=== PATIENT | female | born 1995 | race American Indian/Alaskan Native ===

== ENCOUNTER 2017-01-13 20:22 | Emergency (ER) | payer OTHER, MEDICAID ==
[2017-01-13 20:30] VITALS: BMI 23.6
--- NOTE | 2017-01-13 20:34 | ED PDOC ---
Arrival/HPI - General Time Seen by Provider: 01/13/17 20:24 Historian: Patient - History of Present Illness Narrative History of Present Illness (Text): 01/13/17 20:31 21yo female who present with complaint of left sided lower back pain that radiates to the left pelvic area. States pain started one hour [employer]. She denies nausea, vomiting, dysuria, urinary frequency, fever, melena, hematuria. Past Medical History - Provider Review Nursing Documentation Reviewed: Yes - Past History Past History: No Previous - Infectious Disease Hx of Infectious Diseases: None - Tetanus Immunization Tetanus Immunization: Unknown - Past Medical History Past Medical History: Non-Contributing - Cardiac Hx Cardiac Disorders: No - Pulmonary Hx Bronchitis: Yes - Neurological Hx Neurological Disorder: Yes Hx Migraine: Yes - HEENT Hx HEENT Disorder: No - Renal Hx Renal Disorder: No - Endocrine/Metabolic Hx Endocrine Disorders: No - Hematological/Oncological Hx Blood Disorders: No - Integumentary Hx Dermatological Disorder: No - Musculoskeletal/Rheumatological Hx Musculoskeletal Disorders: No - Gastrointestinal Hx Gastrointestinal Disorders: No - Genitourinary/Gynecological Hx Genitourinary Disorders: No - Psychiatric Hx Psychophysiologic Disorder: No Hx Anxiety: No Hx Bipolar Disorder: No Hx Depression: No Hx Emotional Abuse: No Hx Hallucinations: No Hx Panic Disorder: No Hx Post Traumatic Stress Disorder: No Hx Psychosis: No Hx Physical Abuse: No Hx Schizophrenia: No Hx Sexual Abuse: No Hx Substance Use: No - Past Surgical History Past Surgical History: No Previous - Anesthesia Hx Anesthesia: No Hx Anesthesia Reactions: No Hx Malignant Hyperthermia: No - Suicidal Assessment Feels Threatened In Home Enviroment: No Family/Social History - Physician Review Nursing Documentation Reviewed: Yes Family/Social History: Unknown Family HX Smoking Status: Never Smoked Hx Alcohol Use: Yes Hx Substance Use: No Hx Substance Use Treatment: No Allergies/Home Meds Allergies/Adverse Reactions: Allergies cinnamon Allergy (Verified 03/15/16 10:54) URTICARIA chocolate Allergy (Uncoded 03/15/16 10:54) PAIN Review of Systems - Physician Review All systems were reviewed & negative as marked: Yes - Review of Systems Constitutional: Normal Eyes: Normal ENT: Normal Respiratory: Normal Cardiovascular: Normal Gastrointestinal: Abdominal Pain. absent: Constipation, Diarrhea, Nausea, Vomiting Genitourinary Female: Normal Musculoskeletal: Back Pain Skin: Normal Neurological: Normal Endocrine: Normal Hemo/Lymphatic: Normal Psychiatric: Normal Physical Exam Vital Signs Reviewed: Yes Vital Signs Temp Pulse Resp BP Pulse Ox 01/13/17 22:44 62 16 112/76 100 01/13/17 20:32 97.8 F 70 18 111/76 100 Temperature: Afebrile Blood Pressure: Normal Pulse: Regular Respiratory Rate: Normal Appearance: Positive for: Well-Appearing, Non-Toxic, Comfortable Pain Distress: None Mental Status: Positive for: Alert and Oriented X 3 - Systems Exam Head: Present: Atraumatic, Normocephalic Pupils: Present: PERRL Extroacular Muscles: Present: EOMI Conjunctiva: Present: Normal Mouth: Present: Moist Mucous Membranes Neck: Present: Normal Range of Motion Respiratory/Chest: Present: Clear to Auscultation, Good Air Exchange. No: Respiratory Distress, Accessory Muscle Use Cardiovascular: Present: Regular Rate and Rhythm, Normal S1, S2. No: Murmurs Abdomen: Present: Tenderness (Suprapubic tenderness), Normal Bowel Sounds. No: Distention, Peritoneal Signs, Rebound, Guarding, McBurney's Point Tender, Rovsing's Sign Present Back: Present: Normal Inspection Upper Extremity: Present: Normal Inspection. No: Cyanosis, Edema Lower Extremity: Present: Normal Inspection. No: Edema Neurological: Present: GCS=15, CN II-XII Intact, Speech Normal Skin: Present: Warm, Dry, Normal Color. No: Rashes Psychiatric: Present: Alert, Oriented x 3, Normal Insight, Normal Concentration Medical Decision Making ED Course and Treatment: 01/13/17 23:55 Pt's pain improved in ED with medication. Trace leukocyte was noted in UA Abdominal CT was ordered to r/o renal colic. Abdominal Ct pelvic ascities. Mesenteric lymph node was noted. Secondary to pt's complain and the objective finding, pt was placed on Macrobid for UTI. All result was DW the pt. she was referred to her PMD. TRT ED for any new or worsening symptoms. - Lab Interpretations Lab Results: Lab Results 01/13/17 20:58: Urine Color Yellow, Urine Appearance Sl cloudy, Urine pH 6.0, Ur Specific [place] 1.015, Urine Protein Negative, Urine Glucose (UA) Negative, Urine Ketones Negative, Urine Blood Trace-lysed H, Urine Nitrate Negative, Urine Bilirubin Negative, Urine Urobilinogen 0.2, Ur Leukocyte Esterase Trace H , Urine RBC 0 - 2, Urine WBC 0 - 2, Urine Bacteria Trace - RAD Interpretation Radiology Orders: 01/13/17 21:44 ABD & PELVIS W/O PO OR IV CONT [CT] Stat - Medication Orders Current Medication Orders: Discontinued Medications Ketorolac Tromethamine (Toradol) 60 mg IM STAT STA Stop: 01/13/17 20:57 Last Admin: 01/13/17 21:06 Dose: 60 mg Re-Assess: NICO Pain Assessment Document 01/13/17 22:06 HI (Rec: 01/13/17 22:22 HI [facility]-[id number]) Pain Reassessment Is this a pain reassessment? Yes Sleep Is patient sleeping during reassessment? No Presence of Pain Presence of Pain Yes Pain Scale Used Pain Scale Used Numeric Location Left, Right or Bilateral Left Upper or Lower Lower Pain Location Body Site Back Description Intensity of Pain at present 6 Acceptable Level of Pain 4 Nitrofurantoin Macrocrystals (Macrobid) 100 mg PO ONCE STA Stop: 01/13/17 22:32 Last Admin: 01/13/17 22:40 Dose: 100 mg Disposition/Present on Arrival - Present on Arrival Any Indicators Present on Arrival: No History of DVT/PE: No History of Uncontrolled Diabetes: No Urinary Catheter: No History Surgical Site Infection Following: None - Disposition Have Diagnosis and Disposition been Completed?: Yes Diagnosis: UTI (urinary tract infection) Disposition: HOME/ ROUTINE Disposition Time: 22:35 Patient Plan: Discharge Condition: STABLE Discharge Instructions (ExitCare): Urinary Tract Infection in Women (ED) Additional Instructions: Follow up with your Doctor Return to ED for any new or worsening symptoms Prescriptions: Ibuprofen [Motrin Tab] 600 mg PO Q6 #20 tab Nitrofurantoin Macrocrystals [Macrobid] 100 mg PO BID #14 cap Referrals: [facility] at [facility] [Outside] - Follow up with primary
[2017-01-13 20:42] VITALS: TEMP 97.8; O2SAT 100
[2017-01-13 21:39] LABS: URINE BILIRUBIN NEGATIVE (NEGATIVE); URINE BLOOD TRACE-LYSED (NEGATIVE); URINE GLUCOSE (UA) NEGATIVE (NEGATIVE); URINE KETONE NEGATIVE (NEGATIVE); URINE LEUKOCYTE ESTERASE TRACE Leu/uL (NEGATIVE); URINE PROTEIN NEGATIVE mg/dL (<30 mg/dL); URINE UROBILINOGEN 0.2 E.U./dL (<1 E.U./dL)
[2017-01-13 21:42] LABS: URINE APPEARANCE SL CLOUDY (CLEAR); URINE COLOR YELLOW (YELLOW)
[2017-01-13 21:44] LABS: URINE BACTERIA TRACE (NEG); URINE RBC 0 - 2 /hpf (0-2); URINE WBC 0 - 2 /hpf (0-6)
--- NOTE | 2017-01-13 22:26 | CT ---
EXAM: CT Abdomen and Pelvis Without Intravenous Contrast CLINICAL HISTORY: 21 years old, female; Pain; Other: Back pain; Additional info: Abdominal pain TECHNIQUE: Axial computed tomography images of the abdomen and pelvis without intravenous contrast. This CT exam was performed using one or more of the following dose reduction techniques: automated exposure control, adjustment of the mA and/or kV according to patient size, and/or use of iterative reconstruction technique. Coronal and sagittal reformatted images were created and reviewed. COMPARISON: CT - ABD PELVIS PO IV CONTRAST 10/11/2015 7:56:23 PM FINDINGS: Limitations: Lack of intravenous contrast. Lower thorax: Subcentimeter LEFT lower lobe nodule, stable. ABDOMEN: Liver: Unremarkable. Gallbladder and bile ducts: No calcified stones. No ductal dilation. Pancreas: Unremarkable. No ductal dilation. Spleen: No splenomegaly. Adrenals: No mass. Kidneys and ureters: No renal calculi. No hydronephrosis. Stomach and bowel: Segmental areas of underdistention of colon. No definite mural thickening. No obstruction. Appendix: No findings to suggest acute appendicitis. PELVIS: Bladder: Unremarkable. No stones. Reproductive: Unremarkable as visualized. ABDOMEN and PELVIS: Intraperitoneal space: Small free fluid within pelvis. No free air. Bones/joints: No acute fracture. Soft tissues: Unremarkable. Vasculature: Unremarkable. No abdominal aortic aneurysm. Lymph nodes: Few subcentimeter short axis mesenteric lymph nodes, nonspecific. IMPRESSION: 1. Small pelvic ascites. 2. Incidental/non-acute findings are described above.
[2017-01-13 22:47] VITALS: BP 112/76; PULSE 62; RESP 16
== END 2017-01-13 22:44 | disposition home or self-care (01) ==
LOC: ED 20:22
DX: N39.0 Urinary tract infection, site not specified (principal)
CPT/HCPCS: 74176; 81001; 87086; 96372; 99283; J1885

== ENCOUNTER 2017-06-06 19:40 | Emergency (ER) | payer MEDICAID, OTHER ==
[2017-06-06 19:51] VITALS: RESP 18; TEMP 98.7; O2SAT 98; BMI 24.3
[2017-06-06] MEDS ORDERED: Sodium Chloride 0.9% 1,000 ML IV STA (20:21)
--- NOTE | 2017-06-06 20:32 | ED PDOC ---
Arrival/HPI - History of Present Illness Time/Duration: < week Symptom Onset: Sudden Symptom Course: Unchanged Activities at Onset: Rest Context: Home <SHADIA TRIANA - Last Filed: 06/06/17 21:32> <Gisselle Gutiérrez - Last Filed: 06/06/17 21:59> - General Chief Complaint: GI Problem Time Seen by Provider: 06/06/17 19:51 - History of Present Illness Narrative History of Present Illness (Text): 06/06/17 20:21 Ms. Wade is a 21 year old female with a past medical history significant for ovarian cysts and chronic migraines [place] [facility] [place] with 36 hours of intractable nausea and vomiting with associated diarrhea. Patient reports yesterday morning she awoke having body aches, a sore throat, nausea, and began vomiting shortly after. She reports approximately 16 episodes of non-bloody non- bilious vomiting with approximately 9 episodes of non-bloody diarrhea. She has been unable to tolerate PO intake since yesterday as well. She reports that she had a fever of 101 via an oral thermometer earlier this AM. She reports having two family members at home that have mild viral illness symptoms within the past week without any GI symptoms. She also reports having baked ziti at a local restaurant on Sunday evening but she was accompanied by a guest whom is not currently experiencing any symptoms. She endorses ear pain, rhinorrhea, sore throat, non-productive cough, N/V, diarrhea, fever , chills and vertigo. She denies chest pain, palpitations, SOB, hematemesis, hematochezia, or burning with urination. (SHADIA TRIANA) Past Medical History - Provider Review Nursing Documentation Reviewed: Yes - Travel History Have you recently traveled outside [place] w/in the past 3 mons?: No - Past History Past History: No Previous - Infectious Disease Hx of Infectious Diseases: None - Tetanus Immunization Tetanus Immunization: Unknown - Past Medical History Past Medical History: Non-Contributing - Cardiac Hx Cardiac Disorders: No - Pulmonary Hx Respiratory Disorders: Yes Hx Bronchitis: Yes - Neurological Hx Neurological Disorder: Yes Hx Migraine: Yes - HEENT Hx HEENT Disorder: No - Renal Hx Renal Disorder: No - Endocrine/Metabolic Hx Endocrine Disorders: No - Hematological/Oncological Hx Blood Disorders: No - Integumentary Hx Dermatological Disorder: No - Musculoskeletal/Rheumatological Hx Musculoskeletal Disorders: No - Gastrointestinal Hx Gastrointestinal Disorders: No - Genitourinary/Gynecological Hx Genitourinary Disorders: No - Psychiatric Hx Psychophysiologic Disorder: No Hx Anxiety: No Hx Bipolar Disorder: No Hx Depression: No Hx Emotional Abuse: No Hx Hallucinations: No Hx Panic Disorder: No Hx Post Traumatic Stress Disorder: No Hx Psychosis: No Hx Physical Abuse: No Hx Schizophrenia: No Hx Sexual Abuse: No Hx Substance Use: No - Past Surgical History Past Surgical History: No Previous - Anesthesia Hx Anesthesia: No Hx Anesthesia Reactions: No Hx Malignant Hyperthermia: No - Suicidal Assessment Feels Threatened In Home Enviroment: No <SHADIA TRIANA - Last Filed: 06/06/17 21:32> Family/Social History - Physician Review Nursing Documentation Reviewed: Yes Family/Social History: Unknown Family HX Smoking Status: Never Smoked Hx Alcohol Use: Yes Hx Substance Use: No Hx Substance Use Treatment: No <SHADIA TRIANA - Last Filed: 06/06/17 21:32> Allergies/Home Meds <SHADIA TRIANA - Last Filed: 06/06/17 21:32> <Gisselle Gutiérrez - Last Filed: 06/06/17 21:59> Allergies/Adverse Reactions: Allergies cinnamon Allergy (Verified 06/06/17 19:51) URTICARIA chocolate Allergy (Uncoded 06/06/17 19:51) PAIN Review of Systems - Physician Review All systems were reviewed & negative as marked: Yes - Review of Systems Constitutional: Fevers (oral temp of 101 9/27 AM). absent: Normal, Weight Change, Night Sweats Eyes: Normal. absent: Vision Changes ENT: Sore Throat, Rhinorrhea. absent: Normal, Sinus Congestion Respiratory: Cough (non produc). absent: Normal, SOB, Wheezing Cardiovascular: Normal. absent: Chest Pain, Palpitations Gastrointestinal: Abdominal Pain, Diarrhea, Nausea, Vomiting, Food Intolerance. absent: Normal, Constipation, Hematochezia, Hematemesis Genitourinary Female: Normal. absent: Dysuria Musculoskeletal: Other (body aches). absent: Normal Skin: Normal. absent: Rash Neurological: Headache, Dizziness. absent: Normal <SHADIA TRIANA - Last Filed: 06/06/17 21:32> Physical Exam Vital Signs Reviewed: Yes Temperature: Afebrile Blood Pressure: Normal Pulse: Regular Respiratory Rate: Normal Appearance: Positive for: Well-Appearing, Non-Toxic Pain Distress: None Mental Status: Positive for: Alert and Oriented X 3 - Systems Exam Head: Present: Atraumatic, Normocephalic Pupils: Present: PERRL Extroacular Muscles: Present: EOMI Conjunctiva: Present: Normal Ears: Present: Normal, NORMAL TM, Normal Canal. No: Erythema, TM Bulging, TM Perf Mouth: Present: Moist Mucous Membranes, Normal Lips, Normal Tounge, Normal Teeth Pharnyx: Present: Normal. No: ERYTHEMA, EXUDATE, TONSILS ENLARGED, Peritonsilar Swelling Nose (Internal): Present: No Active Bleeding, Boggy, Rhinorrhea. No: Normal Inspection, Purulent Mucous, Epistaxis Neck: Present: Normal Range of Motion, Trachea Midline. No: Meningeal Signs, JVD Respiratory/Chest: Present: Clear to Auscultation, Good Air Exchange. No: Respiratory Distress, Accessory Muscle Use, Wheezes, Rales, Rhonchi, Tachypneic Cardiovascular: Present: Regular Rate and Rhythm, Normal S1, S2, Peripheal Pulses Present. No: Murmurs, Irregular Rhythm, Tachycardic, Bradycardic Abdomen: Present: Tenderness (mild in RLQ), Normal Bowel Sounds. No: Distention , Peritoneal Signs, Rebound, Guarding Back: No: CVA Tenderness, Midline Tenderness, Paraspinal Tenderness Upper Extremity: Present: Normal Inspection, NORMAL PULSES, Capillary Refill < 2s. No: Cyanosis, Edema Lower Extremity: Present: Normal Inspection, NORMAL PULSES, Capillary Refill < 2 s. No: Edema, CALF TENDERNESS Neurological: Present: GCS=15, CN II-XII Intact, Speech Normal Skin: Present: Warm, Dry, Normal Color. No: Rashes Psychiatric: Present: Alert, Oriented x 3, Normal Insight, Normal Concentration <SHADIA TRIANA - Last Filed: 06/06/17 21:32> Vital Signs Temp Pulse Resp BP Pulse Ox 06/06/17 19:51 98.7 F 96 H 18 115/70 98 Medical Decision Making <SHADIA TRIANA - Last Filed: 06/06/17 21:32> <Gisselle Gutiérrez - Last Filed: 06/06/17 21:59> ED Course and Treatment: 06/06/17 20:43 Impression: 21 year old female with a past medical history significant for ovarian cysts and chronic migraines presents [place] the [facility] [place] with 36 hours of intractable nausea and vomiting with associated diarrhea Plan: -CBC, CMP, PT/INR, PTT, Lipase, POC test, UA -Pepcid, Zofran PRN -Normal Saline 1000ml bolus -Reassess and disposition Prior Visits: 01/13/17: Patient presented with back pain, was found to have UTI and discharged home with macrobid (SHADIA TRIANA) 06/06/17 21:57 Patient seen and examined with resident. Exam with no abdominal tenderness at all; vitals with no fever and unremarkable. Labs entirely normal with no leukocytosis or left shift. Patient given meds for symptomatic relief and feeling much better and able to tolerate po - ok for d/c to f/u pmd and advance diet slowly. Given instructions to return if not feeling better or if feeling worse. (Gisselle Gutiérrez) - Lab Interpretations Lab Results: 06/06/17 20:44 06/06/17 20:44 Lab Results 06/06/17 21:07: Urine Color Yellow, Urine Appearance Sl cloudy, Urine pH 6.0, Ur Specific [place] 1.025, Urine Protein Trace H, Urine Glucose (UA) Negative, Urine Ketones Negative, Urine Blood Small H, Urine Nitrate Negative, Urine Bilirubin Negative, Urine Urobilinogen 0.2, Ur Leukocyte Esterase Negative, Urine RBC 1 - 3, Urine WBC 5 - 10, Ur Epithelial Cells 6 - 8, Urine Bacteria Mod 06/06/17 20:44: Sodium 142, Potassium 3.7, Chloride 102, Carbon Dioxide 30, Anion Gap 14, BUN 11, Creatinine 0.7, Est GFR ( Amer) > 60, Est GFR (Non- Af Amer) > 60, Random Glucose 104, Calcium 9.3, Total Bilirubin 0.3, AST 28, ALT 24, Alkaline Phosphatase 56, Total Protein 7.1, Albumin 4.2, Globulin 2.9, Albumin/Globulin Ratio 1.4, Lipase 56 06/06/17 20:44: PT 11.5, INR 1.06, APTT 29.7 06/06/17 20:44: WBC 5.9, RBC 4.72, Hgb 12.7, Hct 39.1, MCV 82.8, MCH 26.9, MCHC 32.5, RDW 12.6, Plt Count 288, MPV 10.3, Gran % 60.8, Lymph % (Auto) 26.4, [place] % (Auto) 11.1 H, Eos % (Auto) 1.7, Baso % (Auto) 0.0, Gran # 3.57, Lymph # 1.6, Porter # 0.7 H, Eos # 0.1, Baso # 0.00 - Medication Orders Current Medication Orders: Discontinued Medications Acetaminophen (Tylenol 325mg Tab) 650 mg PO STAT STA Stop: 06/06/17 21:30 Last Admin: 06/06/17 21:54 Dose: 650 mg MAR Pain/Vitals Document 06/06/17 21:54 HI (Rec: 06/06/17 21:54 HI [facility]) Pain Reassessment Is This A Pain ReAssessment? Yes Famotidine (Pepcid) 20 mg IVP STAT STA Stop: 06/06/17 20:22 Last Admin: 06/06/17 21:18 Dose: 20 mg IVP Administration Document 06/06/17 21:18 EQ (Rec: 06/06/17 21:18 EQ [id number]) Charges for Administration # of IVP Administrations 1 Sodium Chloride (Sodium Chloride 0.9%) 1,000 mls @ 999 mls/hr IV .Q1H1M STA Stop: 06/06/17 21:21 Last Admin: 06/06/17 20:46 Dose: 999 mls/hr eMAR Start Stop Document 06/06/17 20:46 IT (Rec: 06/06/17 20:46 IT [id number]) Intravenous Solution Start Date 06/06/17 Start Time 20:46 End Date 06/06/17 End time 21:46 Total Infusion Time 60 Ondansetron HCl (Zofran Inj) 4 mg IVP STAT STA Stop: 06/06/17 20:22 Last Admin: 06/06/17 21:18 Dose: 4 mg IVP Administration Document 06/06/17 21:18 EQ (Rec: 06/06/17 21:18 EQ [id number]) Charges for Administration # of IVP Administrations 1 - PA / LOADER ENGINEER / Resident Statement / has reviewed & agrees with the documentation as recorded. / has examined the patient and agrees with the treatment plan. <Gisselle Gutiérrez - Last Filed: 06/06/17 21:59> Disposition/Present on Arrival - Present on Arrival Any Indicators Present on Arrival: No History of DVT/PE: No History of Uncontrolled Diabetes: No Urinary Catheter: No History of Decub. Ulcer: No History Surgical Site Infection Following: None - Disposition Have Diagnosis and Disposition been Completed?: Yes Disposition Time: 21:33 <SHADIA TRIANA - Last Filed: 06/06/17 21:32> - Disposition Patient Plan: Discharge <MarlaGisselle - Last Filed: 06/06/17 21:59> - Disposition Diagnosis: Nausea vomiting and diarrhea Disposition: HOME/ ROUTINE Condition: GOOD Discharge Instructions (ExitCare): Acute Nausea and Vomiting (ED) Additional Instructions: Use Zofran for nausea/vomiting as prescribed. Advance diet as tolerated. Please follow up with your primary care doctor within one week. If you have any concerning symptoms, please return to the ER immediately. Prescriptions: Ondansetron ODT [Zofran ODT] 1 tab PO Q8H PRN #10 odt PRN Reason: Nausea/Vomiting Referrals: [facility] [place] - Follow up with primary Forms: [employer] (Swedish)
[2017-06-06 20:58] LABS: EOS # 0.1 (0.0-0.7); EOS % 1.7 % (1.5-5.0); GRAN # 3.57 (1.4-6.5); GRAN % 60.8 % (50.0-68.0); HEMATOCRIT 39.1 % (36.0-48.0); LYMPH # 1.6 (1.2-3.4); LYMPH % 26.4 % (22.0-35.0); MEAN CELL VOLUME 82.8 fl (80.0-105.0); MEAN CORPUSCULAR HEMOGLOBIN 26.9 pg (25.0-35.0); MEAN CORPUSCULAR HGB CONC 32.5 g/dl (31.0-37.0); MEAN PLATELET VOLUME 10.3 fl (7.0-11.0); MONO # 0.7 (0.1-0.6); MONO % 11.1 % (1.0-6.0); RED CELL DISTRIBUTION WIDTH 12.6 % (11.5-14.5); WHITE BLOOD COUNT 5.9 10^3/ul (4.5-11.0)
[2017-06-06 21:10] LABS: ALB/GLOB RATIO 1.4 (1.1-1.8); ALKALINE PHOSPHATASE 56 U/L (38-126); ALT/SGPT 24 U/L (7-56); AST/SGOT 28 U/L (14-36); BILIRUBIN,TOTAL 0.3 mg/dL (0.2-1.3); BLOOD UREA NITROGEN 11 mg/dL (7-21); CALCIUM 9.3 mg/dL (8.4-10.5); CARBON DIOXIDE 30 mmol/L (21-33); CHLORIDE 102 mmol/L (98-107); GFR AFRICAN-AMERICAN > 60; GLUCOSE,RANDOM 104 mg/dL (70-110); LIPASE 56 U/L (23-300); POTASSIUM 3.7 mmol/L (3.6-5.0); SODIUM 142 mmol/L (132-148); TOTAL PROTEIN 7.1 g/dL (5.8-8.3)
[2017-06-06 21:24] LABS: INR 1.06 (0.93-1.08); PARTIAL THROMBOPLASTIN TIME 29.7 Seconds (23.7-30.8)
[2017-06-06 21:33] LABS: URINE BILIRUBIN NEGATIVE (NEGATIVE); URINE BLOOD SMALL (NEGATIVE); URINE COLOR YELLOW (YELLOW); URINE GLUCOSE (UA) NEGATIVE (NEGATIVE); URINE KETONE NEGATIVE (NEGATIVE); URINE LEUKOCYTE ESTERASE NEGATIVE Leu/uL (NEGATIVE); URINE PROTEIN TRACE mg/dL (<30 mg/dL); URINE UROBILINOGEN 0.2 E.U./dL (<1 E.U./dL)
[2017-06-06 21:54] LABS: URINE APPEARANCE SL CLOUDY (CLEAR); URINE BACTERIA MOD (NEG)
[2017-06-06 22:45] VITALS: BP 112/69; PULSE 92
== END 2017-06-06 22:15 | disposition home or self-care (01) ==
LOC: ED 19:40
DX: R11.2 Nausea with vomiting, unspecified (principal); R19.7 Diarrhea, unspecified
CPT/HCPCS: 80053; 81001; 83690; 85025; 85610; 85730; 87086; 96361; 96374; 96375; 99284; J2405; J7040

== ENCOUNTER 2017-06-13 00:28 | Observation (INO) | payer MEDICAID ==
[2017-06-13] MEDS ORDERED: Sodium Chloride 0.9% 1,000 ML IV STA (01:08)
--- NOTE | 2017-06-13 01:16 | ED PDOC ---
Arrival/HPI - General Chief Complaint: Abdominal Pain Time Seen by Provider: 06/13/17 00:48 Historian: Patient - History of Present Illness Narrative History of Present Illness (Text): 06/13/17 01:15 A 21 year old female, LMP two weeks ago, with a past medical history significant for ovarian cysts, presents to the emergency department complaining of left lower quadrant abdominal discomfort which began tonight. She believes its related to an ovarian cyst.Pt. is mid cycle. Patient denies any fever, chills, nausea, vomiting, vaginal discharge, vaginal bleeding or any other complaints at this time. PMD: Dr. Beavers Symptom Onset: Sudden Symptom Course: Unchanged Activities at Onset: Rest Context: Home Past Medical History - Provider Review Nursing Documentation Reviewed: Yes - Past History Past History: No Previous - Infectious Disease Hx of Infectious Diseases: None - Tetanus Immunization Tetanus Immunization: Unknown - Past Medical History Past Medical History: Non-Contributing - Cardiac Hx Cardiac Disorders: No - Pulmonary Hx Respiratory Disorders: Yes Hx Bronchitis: Yes - Neurological Hx Neurological Disorder: Yes Hx Migraine: Yes - HEENT Hx HEENT Disorder: No - Renal Hx Renal Disorder: No - Endocrine/Metabolic Hx Endocrine Disorders: No - Hematological/Oncological Hx Blood Disorders: No - Integumentary Hx Dermatological Disorder: No - Musculoskeletal/Rheumatological Hx Musculoskeletal Disorders: No - Gastrointestinal Hx Gastrointestinal Disorders: No - Genitourinary/Gynecological Hx Genitourinary Disorders: No Other/Comment: Ovarian cyst - Psychiatric Hx Psychophysiologic Disorder: No Hx Anxiety: No Hx Bipolar Disorder: No Hx Depression: No Hx Emotional Abuse: No Hx Hallucinations: No Hx Panic Disorder: No Hx Post Traumatic Stress Disorder: No Hx Psychosis: No Hx Physical Abuse: No Hx Schizophrenia: No Hx Sexual Abuse: No Hx Substance Use: Yes - Past Surgical History Past Surgical History: No Previous - Anesthesia Hx Anesthesia: No Hx Anesthesia Reactions: No Hx Malignant Hyperthermia: No - Suicidal Assessment Feels Threatened In Home Enviroment: No Family/Social History - Physician Review Nursing Documentation Reviewed: Yes Family/Social History: No Known Family HX Smoking Status: Never Smoked Hx Alcohol Use: Yes Frequency of alcohol use: Socially Hx Substance Use: Yes Substance used: cannabis Hx Substance Use Treatment: No Allergies/Home Meds Allergies/Adverse Reactions: Allergies cinnamon Allergy (Verified 06/06/17 19:51) URTICARIA chocolate Allergy (Uncoded 06/06/17 19:51) PAIN Home Medications: Home Meds Medication Instructions Recorded Confirmed Unobtainable 06/13/17 06/13/17 Review of Systems - Physician Review All systems were reviewed & negative as marked: Yes - Review of Systems Constitutional: absent: Fevers, Other (chills) Gastrointestinal: Abdominal Pain (LLQ). absent: Nausea, Vomiting Genitourinary Female: absent: Vaginal Bleeding, Vaginal Discharge Physical Exam Vital Signs Reviewed: Yes Vital Signs Pulse Resp BP Pulse Ox 06/13/17 01:05 78 16 131/90 100 Blood Pressure: Normal Pulse: Regular Respiratory Rate: Normal Appearance: Positive for: Well-Appearing, Non-Toxic Pain Distress: Mild Mental Status: Positive for: Alert and Oriented X 3 - Systems Exam Head: Present: Atraumatic, Normocephalic Pupils: Present: PERRL Extroacular Muscles: Present: EOMI Conjunctiva: Present: Normal Mouth: Present: Moist Mucous Membranes Neck: Present: Normal Range of Motion Respiratory/Chest: Present: Clear to Auscultation, Good Air Exchange. No: Respiratory Distress, Accessory Muscle Use Cardiovascular: Present: Regular Rate and Rhythm, Normal S1, S2. No: Murmurs Abdomen: Present: Tenderness (LLQ), Normal Bowel Sounds. No: Distention, Peritoneal Signs Back: Present: Normal Inspection Upper Extremity: Present: Normal Inspection. No: Cyanosis, Edema Lower Extremity: Present: Normal Inspection. No: Edema Neurological: Present: GCS=15, CN II-XII Intact, Speech Normal Skin: Present: Warm, Dry, Normal Color. No: Rashes Psychiatric: Present: Alert, Oriented x 3, Normal Insight, Normal Concentration Medical Decision Making ED Course and Treatment: 06/13/17 01:14 Impression: A 21 year old female with left lower quadrant abdominal pain. Differential Diagnosis included but are not limited to: ovarian cyst vs. UTI vs. renal colic Plan: -- US transvaginal -- labs -- Urinalysis -- Toradol, IV fluids -- Reassess and disposition Prior Visits: Notes and results from previous visits were reviewed. Patient was last seen in the emergency department on 06/06/17 for evaluation of nausea, vomiting and diarrhea. Progress Notes: US Pelvis Complete, Transabdominal US Pelvis, Transvaginal FINDINGS: Uterus/cervix: The endometrial stripe measures 1.08 cm, which is mildly thickened. Minimal fluid is seen within the endometrial canal. The uterus measures 8.4 x 4.1 x 4.9 cm. The cervical length is 3.62 cm. No myometrial mass. Right ovary: The right ovary measures 2.4 x 1.6 x 2.4 cm. Small hypoechoic follicles are identified within the right ovary. There is physiologic blood flow within the right ovary. Left ovary: There is distention of the left fallopian tube measuring 1.6 cm in diameter with abnormal echogenicity. This is concerning for pyosalpinx or tubo-ovarian abscess. Within the left ovary, there is a complex multiloculated cystic mass measuring 3.2 x 1.9 x 3.3 cm. The left ovary measures 4.3 x 2.8 x 3.9 cm. There is physiologic blood flow within the left ovary. Free fluid: There is a small amount of free fluid within the pelvis. Bladder: There is borderline thickening of the bladder wall measuring 0.79 cm in thickness. This is a nonspecific finding. IMPRESSION: 1. There is distention of the left fallopian tube measuring 1.6 cm in diameter with abnormal echogenicity. This is concerning for pyosalpinx or tubo-ovarian abscess. 2. Within the left ovary, there is a complex multiloculated cystic mass measuring 3.2 x 1.9 x 3.3 cm. 3. The endometrial stripe measures 1.08 cm, which is mildly thickened. Minimal fluid is seen within the endometrial canal. 4. There is a small amount of free fluid within the pelvis. 5. There is borderline thickening of the bladder wall measuring 0.79 cm in thickness. This is a nonspecific finding. Clinical correlation is recommended. 6. Follow-up ultrasonography is recommended. THIS REPORT CONTAINS FINDINGS THAT MAY BE CRITICAL TO PATIENT CARE. The findings were verbally communicated via telephone conference with Hill Conley at 3 :27 AM EDT on 06/13/2017. The findings were acknowledged and understood. Dictated and Authenticated by: Gamal Moore MD 06/13/2017 3:27 AM Eastern Time ([place] & [place]) 06/13/17 04:05 Case discussed in detail with Dr. Louis, who will see patient on consult and agrees to admit patient to hospitalist's service. - Lab Interpretations Lab Results: 06/13/17 01:03 06/13/17 01:03 Lab Results 06/13/17 01:03: Urine Color Yellow, Urine Appearance Clear, Urine pH 6.5, Ur Specific Machias <= 1.005, Urine Protein Negative, Urine Glucose (UA) Negative, Urine Ketones Negative, Urine Blood Small H, Urine Nitrate Negative, Urine Bilirubin Negative, Urine Urobilinogen 0.2, Ur Leukocyte Esterase Small H, Urine RBC 1 - 3, Urine WBC 2 - 5, Ur Epithelial Cells 1 - 3, Urine Bacteria Rare , Urine HCG, Qual Negative 06/13/17 01:03: WBC 7.5 D, RBC 4.52, Hgb 12.2, Hct 36.9, MCV 81.6, MCH 27.0, MCHC 33.1, RDW 12.6, Plt Count 289, MPV 10.4 06/13/17 01:03: Sodium 141, Potassium 3.1 L, Chloride 102, Carbon Dioxide 24, Anion Gap 18, BUN 12, Creatinine 0.7, Est GFR ( Amer) > 60, Est GFR (Non- Af Amer) > 60, Random Glucose 114 H, Calcium 9.9, Total Bilirubin 0.4, AST 32, ALT 30, Alkaline Phosphatase 62, Total Protein 7.8, Albumin 4.7, Globulin 3.1, Albumin/Globulin Ratio 1.5, Lipase 56 I have reviewed the lab results: Yes - RAD Interpretation Radiology Orders: 06/13/17 01:08 TRANSVAGINAL [US] Stat - Medication Orders Current Medication Orders: Cefoxitin Sodium 2 gm/ Sodium (Chloride) 100 mls @ 100 mls/hr IV ONCE ONE PRN Reason: Protocol Stop: 06/13/17 05:13 Doxycycline Hyclate 100 mg/ (Sodium Chloride) 100 mls @ 100 mls/hr IVPB ONCE ONE PRN Reason: Protocol Stop: 06/13/17 05:15 Discontinued Medications Sodium Chloride (Sodium Chloride 0.9%) 1,000 mls @ 999 mls/hr IV .Q1H1M STA Stop: 06/13/17 02:08 Last Admin: 06/13/17 01:25 Dose: 999 mls/hr eMAR Start Stop Document 06/13/17 01:25 SS (Rec: 06/13/17 01:25 SS [id number]) Intravenous Solution Start Date 06/13/17 Start Time 01:25 Ketorolac Tromethamine (Toradol) 30 mg IVP ONCE ONE Stop: 06/13/17 01:09 Last Admin: 06/13/17 01:25 Dose: 30 mg MAR Pain Assessment Document 06/13/17 01:25 SS (Rec: 06/13/17 01:25 SS [id number]) Pain Reassessment Is this a pain reassessment? No Sleep Is patient sleeping during reassessment? No Presence of Pain Presence of Pain Yes IVP Administration Document 06/13/17 01:25 SS (Rec: 06/13/17 01:25 SS [id number]) Charges for Administration # of IVP Administrations 1 Potassium Chloride (K-Dur 20 Meq Er Tab) 40 meq PO STAT STA Stop: 06/13/17 01:51 Last Admin: 06/13/17 02:06 Dose: 40 meq - Scribe Statement The provider has reviewed the documentation as recorded by the Fay Nunes Provider Scribe Attestation: All medical record entries made by the Fay were at my direction and personally dictated by me. I have reviewed the chart and agree that the record accurately reflects my personal performance of the history, physical exam, medical decision making, and the department course for this patient. I have also personally directed, reviewed, and agree with the discharge instructions and disposition. Disposition/Present on Arrival - Present on Arrival Any Indicators Present on Arrival: No History of DVT/PE: No History of Uncontrolled Diabetes: No Urinary Catheter: No History of Decub. Ulcer: No History Surgical Site Infection Following: None - Disposition Have Diagnosis and Disposition been Completed?: Yes Diagnosis: Abdominal pain, Tubo-ovarian abscess Disposition: HOSPITALIZED Disposition Time: 04:26 Patient Problems: Current Active Problems Problem Status Onset Abdominal pain Acute Tubo-ovarian abscess Acute Condition: STABLE
[2017-06-13 01:27] LABS: HEMATOCRIT 36.9 % (36.0-48.0); MEAN CELL VOLUME 81.6 fl (80.0-105.0); MEAN CORPUSCULAR HGB CONC 33.1 g/dl (31.0-37.0); MEAN PLATELET VOLUME 10.4 fl (7.0-11.0); RED CELL DISTRIBUTION WIDTH 12.6 % (11.5-14.5); WHITE BLOOD COUNT 7.5 10^3/ul (4.5-11.0)
[2017-06-13 01:28] LABS: PH,URINE 6.5 (4.7-8.0); URINE BILIRUBIN NEGATIVE (NEGATIVE); URINE BLOOD SMALL (NEGATIVE); URINE GLUCOSE (UA) NEGATIVE (NEGATIVE); URINE KETONE NEGATIVE (NEGATIVE); URINE LEUKOCYTE ESTERASE SMALL Leu/uL (NEGATIVE); URINE PROTEIN NEGATIVE mg/dL (<30 mg/dL); URINE UROBILINOGEN 0.2 E.U./dL (<1 E.U./dL)
[2017-06-13 01:33] LABS: ALB/GLOB RATIO 1.5 (1.1-1.8); ALKALINE PHOSPHATASE 62 U/L (38-126); ALT/SGPT 30 U/L (7-56); AST/SGOT 32 U/L (14-36); BILIRUBIN,TOTAL 0.4 mg/dL (0.2-1.3); BLOOD UREA NITROGEN 12 mg/dL (7-21); CALCIUM 9.9 mg/dL (8.4-10.5); CARBON DIOXIDE 24 mmol/L (21-33); CHLORIDE 102 mmol/L (98-107); GFR AFRICAN-AMERICAN > 60; GLUCOSE,RANDOM 114 mg/dL (70-110); LIPASE 56 U/L (23-300); POTASSIUM 3.1 mmol/L (3.6-5.0); SODIUM 141 mmol/L (132-148); TOTAL PROTEIN 7.8 g/dL (5.8-8.3)
[2017-06-13 01:43] LABS: URINE APPEARANCE CLEAR (CLEAR); URINE COLOR YELLOW (YELLOW)
[2017-06-13 01:49] LABS: URINE BACTERIA RARE (NEG)
[2017-06-13] MEDS ORDERED: Potassium Chloride 20 mEq ER Tab PO STA (01:50)
--- NOTE | 2017-06-13 03:27 | US ---
EXAM: US Pelvis Complete, Transabdominal US Pelvis, Transvaginal EXAM DATE/TIME: 06/13/2017 1:08 AM CLINICAL HISTORY: The patient age is 21 years old and is female; Pain; Pelvic pain Facility exam id and description: Us transve transvaginal TECHNIQUE: Real-time transabdominal and transvaginal pelvic ultrasound (complete) with image documentation. Transvaginal imaging was used for better evaluation of the endometrium and adnexa. COMPARISON: CT - ABD PELVIS W/O PO OR IV CONT 01/13/2017 9:52:19 PM FINDINGS: Uterus/cervix: The endometrial stripe measures 1.08 cm, which is mildly thickened. Minimal fluid is seen within the endometrial canal. The uterus measures 8.4 x 4.1 x 4.9 cm. The cervical length is 3.62 cm. No myometrial mass. Right ovary: The right ovary measures 2.4 x 1.6 x 2.4 cm. Small hypoechoic follicles are identified within the right ovary. There is physiologic blood flow within the right ovary. Left ovary: There is distention of the left fallopian tube measuring 1.6 cm in diameter with abnormal echogenicity. This is concerning for pyosalpinx or tubo-ovarian abscess. Within the left ovary, there is a complex multiloculated cystic mass measuring 3.2 x 1.9 x 3.3 cm. The left ovary measures 4.3 x 2.8 x 3.9 cm. There is physiologic blood flow within the left ovary. Free fluid: There is a small amount of free fluid within the pelvis. Bladder: There is borderline thickening of the bladder wall measuring 0.79 cm in thickness. This is a nonspecific finding. IMPRESSION: 1. There is distention of the left fallopian tube measuring 1.6 cm in diameter with abnormal echogenicity. This is concerning for pyosalpinx or tubo-ovarian abscess. 2. Within the left ovary, there is a complex multiloculated cystic mass measuring 3.2 x 1.9 x 3.3 cm. 3. The endometrial stripe measures 1.08 cm, which is mildly thickened. Minimal fluid is seen within the endometrial canal. 4. There is a small amount of free fluid within the pelvis. 5. There is borderline thickening of the bladder wall measuring 0.79 cm in thickness. This is a nonspecific finding. Clinical correlation is recommended. 6. Follow-up ultrasonography is recommended. THIS REPORT CONTAINS FINDINGS THAT MAY BE CRITICAL TO PATIENT CARE. The findings were verbally communicated via telephone conference with Hill Conley at 3:27 AM EDT on 06/13/2017. The findings were acknowledged and understood.
[2017-06-13] MEDS ORDERED: cefOXitin 2 GM in Sodium Chloride 0.9% 100 ML IV ONE (04:14)
[2017-06-13] MEDS ORDERED: Sodium Chloride 0.9% 1,000 ML IV SCH ×2 (05:30→06:45)
[2017-06-13 06:18] VITALS: BP 106/58; PULSE 76; RESP 20; TEMP 98.3; BMI 23.6
[2017-06-13] MEDS ORDERED: Pneumococcal 23-Valent Vaccine IM ONE (06:18)
--- NOTE | 2017-06-13 06:52 | CP.PCM.HP ---
<Jens Archuleta - Last Filed: 06/13/17 06:48> History of Present Illness - History of Present Illness History of Present Illness: Chief Complaint Pelvic pain HPI Patient is a 21 year old female with no significant past medical history who presents with abdominal pain which started at 11 p.m. on 06/12/17. Patient states she was playing PS[employer] whe nshe suddenly felt a pop in her vaginal area which radiated to both feet bilaterally. Patient states this pain and sensation is similar to what she felt 03/2016 when she had an ovarian cyst rupture. Patient admits to nausea due to pain as well as chills. Patient denies vomiting, diarrhea, shortness of breath, fever. Patient states her last MP was 2.5 weeks prior and partakes in unprotected sex. FHx: Cancer- uterine, ovarian SHx: none Allergies: NKDA Present on Admission - Present on Admission Any Indicators Present on Admission: No Review of Systems - Constitutional Constitutional: Chills. absent: Fatigue, Fever - EENT Eyes: absent: Blurred Vision, Change in Vision Ears: absent: Decreased Hearing, Ear Discharge - Cardiovascular Cardiovascular: absent: Chest Pain, Chest Pain at Rest - Respiratory Respiratory: absent: Cough, Dyspnea - Gastrointestinal Gastrointestinal: Abdominal Pain - Genitourinary Genitourinary: absent: Change in Urinary Stream, Difficulty Urinating, Dysuria - Musculoskeletal Musculoskeletal: absent: Arthralgias, Back Pain - Integumentary Integumentary: absent: Bleeding Lesions, Unusual Bruising - Neurological Neurological: absent: Abnormal Gait, Abnormal Hearing - Psychiatric Psychiatric: absent: Abnormal Sleep Pattern, Anhedonia - Endocrine Endocrine: absent: Change in Body Appearance, Cold Intolorance Past Patient History - Infectious Disease Hx of Infectious Diseases: None - Tetanus Immunizations Tetanus Immunization: Unknown - Past Social History Smoking Status: Never Smoked - CARDIAC Hx Cardiac Disorders: No - PULMONARY Hx Respiratory Disorders: Yes Hx Bronchitis: Yes - NEUROLOGICAL Hx Neurological Disorder: Yes Hx Migraine: Yes - HEENT Hx HEENT Problems: No - RENAL Hx Chronic Kidney Disease: No - ENDOCRINE/METABOLIC Hx Endocrine Disorders: No - HEMATOLOGICAL/ONCOLOGICAL Hx Blood Disorders: No - INTEGUMENTARY Hx Dermatological Problems: No - MUSCULOSKELETAL/RHEUMATOLOGICAL Hx Musculoskeletal Disorders: No Hx Falls: Yes (Syncope) - GASTROINTESTINAL Hx Gastrointestinal Disorders: No - GENITOURINARY/GYNECOLOGICAL Hx Genitourinary Disorders: No Other/Comment: Ovarian cyst, Ovian cyst rupture 01/2016 - PSYCHIATRIC Hx Psychophysiologic Disorder: No Hx Anxiety: No Hx Bipolar Disorder: No Hx Depression: No Hx Emotional Abuse: No Hx Hallucinations: No Hx Panic Symptoms: No Hx Post Traumatic Stress Disorder: No Hx Psychosis: No Hx Physical Abuse: No Hx Schizophrenia: No Hx Sexual Abuse: No Hx Substance Use: No (Pt denies) - SURGICAL HISTORY Hx Surgeries: No - ANESTHESIA Hx Anesthesia: No Hx Anesthesia Reactions: No Hx Malignant Hyperthermia: No Meds Allergies/Adverse Reactions: Allergies Allergy/AdvReac Type Severity Reaction Status Date / Time cinnamon Allergy URTICARIA Verified 06/06/17 19:51 chocolate Allergy PAIN Uncoded 06/06/17 19:51 Physical Exam - Constitutional Appears: Well - Head Exam Head Exam: ATRAUMATIC, NORMAL INSPECTION, NORMOCEPHALIC - Eye Exam Eye Exam: EOMI, Normal appearance - ENT Exam ENT Exam: Mucous Membranes Moist, Normal Exam - Neck Exam Neck exam: Positive for: Normal Inspection - Respiratory Exam Respiratory Exam: Clear to Auscultation Bilateral, NORMAL BREATHING PATTERN. absent: Wheezes - GI/Abdominal Exam GI & Abdominal Exam: Diminished Bowel Sounds, Soft, Tenderness (lower quadrants bilaterally). absent: Rebound - Extremities Exam Extremities exam: Positive for: normal inspection - Back Exam Back exam: NORMAL INSPECTION - Neurological Exam Neurological exam: Alert, CN II-XII Intact, Oriented x3 - Psychiatric Exam Psychiatric exam: Normal Affect, Normal Mood - Skin Skin Exam: Normal Color, Warm Results - Vital Signs Recent Vital Signs: Last Vital Signs Temp 98.3 F 06/13/17 06:01 Pulse 76 06/13/17 06:01 Resp 20 06/13/17 06:01 BP 106/58 L 06/13/17 06:01 Pulse Ox 100 06/13/17 01:05 - Labs Result Diagrams: 06/13/17 01:03 06/13/17 01:03 Assessment & Plan - Assessment and Plan (Free Text) Plan: Assessment 21 year old female with no significant past medical history presenting with pelvic pain Plan - Gynecology consulted; f/u with recs - C/w abx treatment - NPO - C/w pain control - NS @ 100 <Ada Allen - Last Filed: 06/15/17 19:00> Results - Vital Signs Recent Vital Signs: Last Vital Signs Temp 98.3 F 06/13/17 07:00 Pulse 76 06/13/17 07:00 Resp 20 06/13/17 07:00 BP 106/58 L 06/13/17 07:00 Pulse Ox 96 06/13/17 07:00 - Labs Result Diagrams: 06/13/17 06:45 06/13/17 06:45 Attending/Attestation - Attestation I have personally seen and examined this patient.: Yes I have fully participated in the care of the patient.: Yes I have reviewed all pertinent clinical information: Yes Notes (Text): 06/15/17 18:59 Agree with history, physical examination, assessment and plan.
[2017-06-13 07:59] LABS: BASO # 0.01 K/mm3 (0.0-2.0); BASO % 0.1 % (0.0-3.0); EOS % 0.3 % (1.5-5.0); GRAN # 6.59 (1.4-6.5); HEMATOCRIT 34.9 % (36.0-48.0); LYMPH # 2.7 (1.2-3.4); LYMPH % 27.2 % (22.0-35.0); MEAN CELL VOLUME 81.4 fl (80.0-105.0); MEAN CORPUSCULAR HGB CONC 33.2 g/dl (31.0-37.0); MEAN PLATELET VOLUME 9.8 fl (7.0-11.0); MONO # 0.5 (0.1-0.6); MONO % 5.4 % (1.0-6.0); RED CELL DISTRIBUTION WIDTH 12.5 % (11.5-14.5); WHITE BLOOD COUNT 9.8 10^3/ul (4.5-11.0)
[2017-06-13 08:09] LABS: ALB/GLOB RATIO 1.4 (1.1-1.8); ALKALINE PHOSPHATASE 54 U/L (38-126); ALT/SGPT 28 U/L (7-56); AST/SGOT 24 U/L (14-36); BILIRUBIN,TOTAL 0.5 mg/dL (0.2-1.3); BLOOD UREA NITROGEN 9 mg/dL (7-21); CALCIUM 8.7 mg/dL (8.4-10.5); CARBON DIOXIDE 23 mmol/L (21-33); CHLORIDE 108 mmol/L (98-107); GFR AFRICAN-AMERICAN > 60; GLUCOSE,RANDOM 93 mg/dL (70-110); POTASSIUM 3.8 mmol/L (3.6-5.0); SODIUM 141 mmol/L (132-148); TOTAL PROTEIN 6.8 g/dL (5.8-8.3)
[2017-06-13 10:12] VITALS: O2SAT 96
[2017-06-13] MEDS ORDERED: cefOXitin Sodium 1 GM in Sodium Chloride 0.9% 100 ML IV SCH (12:00)
[2017-06-13 13:34] LABS: INR 1.11 (0.93-1.08); PARTIAL THROMBOPLASTIN TIME 29.5 Seconds (23.7-30.8)
--- NOTE | 2017-06-13 13:46 | CP.PCM.DIS ---
<Angelica Marx - Last Filed: 06/13/17 15:28> Provider - Provider Date of Admission: 06/13/17 04:19 Attending physician: Magy Tobias MD Primary care physician: Falguni Beavers MD Consults: F[employer] E[employer]IENT [employer]LE DESIGNER: Missy Time Spent in preparation of Discharge (in minutes): 30 Hospital Course - Lab Results Lab Results: Most Recent Lab Values WBC 9.8 10^3/ul (4.5-11.0) D 06/13/17 06:45 RBC 4.29 10^6/uL (3.5-6.1) 06/13/17 06:45 Hgb 11.6 g/dL (12.0-16.0) L 06/13/17 06:45 Hct 34.9 % (36.0-48.0) L 06/13/17 06:45 MCV 81.4 fl (80.0-105.0) 06/13/17 06:45 MCH 27.0 pg (25.0-35.0) 06/13/17 06:45 MCHC 33.2 g/dl (31.0-37.0) 06/13/17 06:45 RDW 12.5 % (11.5-14.5) 06/13/17 06:45 Plt Count 260 10^3/uL (120.0-450.0) 06/13/17 06:45 MPV 9.8 fl (7.0-11.0) 06/13/17 06:45 Gran % 67.0 % (50.0-68.0) 06/13/17 06:45 Lymph % (Auto) 27.2 % (22.0-35.0) 06/13/17 06:45 [place] % (Auto) 5.4 % (1.0-6.0) 06/13/17 06:45 Eos % (Auto) 0.3 % (1.5-5.0) L 06/13/17 06:45 Baso % (Auto) 0.1 % (0.0-3.0) 06/13/17 06:45 Gran # 6.59 (1.4-6.5) H 06/13/17 06:45 Lymph # 2.7 (1.2-3.4) 06/13/17 06:45 [place] # 0.5 (0.1-0.6) 06/13/17 06:45 Eos # 0.0 (0.0-0.7) 06/13/17 06:45 Baso # 0.01 K/mm3 (0.0-2.0) 06/13/17 06:45 Sodium 141 mmol/L (132-148) 06/13/17 06:45 Potassium 3.8 mmol/L (3.6-5.0) 06/13/17 06:45 Chloride 108 mmol/L (98-107) H 06/13/17 06:45 Carbon Dioxide 23 mmol/L (21-33) 06/13/17 06:45 Anion Gap 14 (10-20) 06/13/17 06:45 BUN 9 mg/dL (7-21) 06/13/17 06:45 Creatinine 0.6 mg/dL (0.7-1.2) L 06/13/17 06:45 Est GFR ( Amer) > 60 06/13/17 06:45 Est GFR (Non-Af Amer) > 60 06/13/17 06:45 Random Glucose 93 mg/dL (70-110) 06/13/17 06:45 Calcium 8.7 mg/dL (8.4-10.5) 06/13/17 06:45 Total Bilirubin 0.5 mg/dL (0.2-1.3) 06/13/17 06:45 AST 24 U/L (14-36) 06/13/17 06:45 ALT 28 U/L (7-56) 06/13/17 06:45 Alkaline Phosphatase 54 U/L (38-126) 06/13/17 06:45 Total Protein 6.8 g/dL (5.8-8.3) 06/13/17 06:45 Albumin 4.0 g/dL (3.0-4.8) 06/13/17 06:45 Globulin 2.8 gm/dL 06/13/17 06:45 Albumin/Globulin Ratio 1.4 (1.1-1.8) 06/13/17 06:45 Lipase 56 U/L (23-300) 06/13/17 01:03 Urine Color Yellow (YELLOW) 06/13/17 01:03 Urine Appearance Clear (CLEAR) 06/13/17 01:03 Urine pH 6.5 (4.7-8.0) 06/13/17 01:03 Ur Specific [place] <= 1.005 (1.005-1.035) 06/13/17 01:03 Urine Protein Negative mg/dL (<30 mg/dL) 06/13/17 01:03 Urine Glucose (UA) Negative mg/dL (NEGATIVE) 06/13/17 01:03 Urine Ketones Negative mg/dL (NEGATIVE) 06/13/17 01:03 Urine Blood Small (NEGATIVE) H 06/13/17 01:03 Urine Nitrate Negative (NEGATIVE) 06/13/17 01:03 Urine Bilirubin Negative (NEGATIVE) 06/13/17 01:03 Urine Urobilinogen 0.2 E.U./dL (<1 E.U./dL) 06/13/17 01:03 Ur Leukocyte Esterase Small Jerardo/uL (NEGATIVE) H 06/13/17 01:03 Urine RBC 1 - 3 /hpf (0-2) 06/13/17 01:03 Urine WBC 2 - 5 /hpf (0-6) 06/13/17 01:03 Ur Epithelial Cells 1 - 3 /hpf (0-5) 06/13/17 01:03 Urine Bacteria Rare (NEG) 06/13/17 01:03 Urine HCG, Qual Negative (NEGATIVE) 06/13/17 01:03 - Hospital Course Hospital Course: This is a 21 year old female with past medical history of migraines presented to [facility] for abdominal pain that started 11pm in the evening. Patient states that the pain is the same pain she felt when she had a cyst rupture last year. TVUS showed distended L fallopian tube 1.6 cm in diameter, possible tubo-ovarian abscess; complex cyst L ovary 3.2 x 1.9 x 3.3cm, small amount of free fluid in the pelvis (please see full report). Patient was started on IVF, Doxycycline and Cefoxitine. FU[employer] EFFICIENT AUTOMOBILE DESIGNER was consulted and on the case. Per Dr Louis, there is no evidence of PID or TOA at this time. No surgical intervention needed. Patient is hemodynamically stable and can follow up with him in the office as an outpatient in 1 week. On day of discharge, pain improved. Patient was ambulating and tolerating diet. Labs and vitals were stable. Patient to continue doxycycline and flagyl for 1 week. All questions and concerns were addressed. Discharge Exam - Head Exam Head Exam: ATRAUMATIC, NORMAL INSPECTION, NORMOCEPHALIC - Eye Exam Eye Exam: EOMI, Normal appearance Pupil Exam: NORMAL ACCOMODATION, PERRL - ENT Exam ENT Exam: Mucous Membranes Moist - Neck Exam Neck exam: Full Rom - Respiratory Exam Respiratory Exam: Clear to PA & Lateral, UNREMARKABLE. absent: Rales, Rhonchi, Wheezes - Cardiovascular Exam Cardiovascular Exam: REGULAR RHYTHM, +S1, +S2 - GI/Abdominal Exam GI & Abdominal Exam: Soft, Tenderness. absent: Firm, Guarding, Rigid Additional comments: LLQ tenderness to palpation - Rectal Exam Rectal Exam: Deferred - Extremities Exam Extremities exam: normal capillary refill, normal inspection, pedal pulses present - Back Exam Back exam: NORMAL INSPECTION - Neurological Exam Neurological exam: Alert, CN II-XII Intact, Normal Gait, Oriented x3 - Psychiatric Exam Psychiatric exam: Normal Affect, Normal Mood - Skin Skin Exam: Dry, Normal Color, Warm Discharge Plan - Discharge Medications Prescriptions: Doxycycline Hyclate 100 mg PO BID #14 capsule Metronidazole [Flagyl] 500 mg PO Q8 #21 tab traMADol [Ultram] 50 mg PO TID #10 tab - Follow Up Plan Condition: STABLE Disposition: HOME/ ROUTINE Instructions: Ovarian Cyst (GEN), Influenza Vaccine (DC) Additional Instructions: 1. Follow up with FUEL EFFICIENT [employer]LE DESIGNER DR. Louis in 1 week. 2. Follow up culture results. Referrals: Mehul Louis MD [Staff Provider] - Falguni Beavers MD [Primary Care Provider] - <Magy Tobias - Last Filed: 06/13/17 16:43> Provider - Provider Date of Admission: 06/13/17 04:19 Attending physician: Magy Tobias MD Primary care physician: Falguni Beavers MD Hospital Course - Lab Results Lab Results: Most Recent Lab Values WBC 9.8 10^3/ul (4.5-11.0) D 06/13/17 06:45 RBC 4.29 10^6/uL (3.5-6.1) 06/13/17 06:45 Hgb 11.6 g/dL (12.0-16.0) L 06/13/17 06:45 Hct 34.9 % (36.0-48.0) L 06/13/17 06:45 MCV 81.4 fl (80.0-105.0) 06/13/17 06:45 MCH 27.0 pg (25.0-35.0) 06/13/17 06:45 MCHC 33.2 g/dl (31.0-37.0) 06/13/17 06:45 RDW 12.5 % (11.5-14.5) 06/13/17 06:45 Plt Count 260 10^3/uL (120.0-450.0) 06/13/17 06:45 MPV 9.8 fl (7.0-11.0) 06/13/17 06:45 Gran % 67.0 % (50.0-68.0) 06/13/17 06:45 Lymph % (Auto) 27.2 % (22.0-35.0) 06/13/17 06:45 [place] % (Auto) 5.4 % (1.0-6.0) 06/13/17 06:45 Eos % (Auto) 0.3 % (1.5-5.0) L 06/13/17 06:45 Baso % (Auto) 0.1 % (0.0-3.0) 06/13/17 06:45 Gran # 6.59 (1.4-6.5) H 06/13/17 06:45 Lymph # 2.7 (1.2-3.4) 06/13/17 06:45 [place] # 0.5 (0.1-0.6) 06/13/17 06:45 Eos # 0.0 (0.0-0.7) 06/13/17 06:45 Baso # 0.01 K/mm3 (0.0-2.0) 06/13/17 06:45 PT 12.0 Seconds (9.9-11.8) H 06/13/17 13:00 INR 1.11 (0.93-1.08) H 06/13/17 13:00 APTT 29.5 Seconds (23.7-30.8) 06/13/17 13:00 Sodium 141 mmol/L (132-148) 06/13/17 06:45 Potassium 3.8 mmol/L (3.6-5.0) 06/13/17 06:45 Chloride 108 mmol/L (98-107) H 06/13/17 06:45 Carbon Dioxide 23 mmol/L (21-33) 06/13/17 06:45 Anion Gap 14 (10-20) 06/13/17 06:45 BUN 9 mg/dL (7-21) 06/13/17 06:45 Creatinine 0.6 mg/dL (0.7-1.2) L 06/13/17 06:45 Est GFR ( Amer) > 60 06/13/17 06:45 Est GFR (Non-Af Amer) > 60 06/13/17 06:45 Random Glucose 93 mg/dL (70-110) 06/13/17 06:45 Calcium 8.7 mg/dL (8.4-10.5) 06/13/17 06:45 Total Bilirubin 0.5 mg/dL (0.2-1.3) 06/13/17 06:45 AST 24 U/L (14-36) 06/13/17 06:45 ALT 28 U/L (7-56) 06/13/17 06:45 Alkaline Phosphatase 54 U/L (38-126) 06/13/17 06:45 Total Protein 6.8 g/dL (5.8-8.3) 06/13/17 06:45 Albumin 4.0 g/dL (3.0-4.8) 06/13/17 06:45 Globulin 2.8 gm/dL 06/13/17 06:45 Albumin/Globulin Ratio 1.4 (1.1-1.8) 06/13/17 06:45 Lipase 56 U/L (23-300) 06/13/17 01:03 Urine Color Yellow (YELLOW) 06/13/17 01:03 Urine Appearance Clear (CLEAR) 06/13/17 01:03 Urine pH 6.5 (4.7-8.0) 06/13/17 01:03 Ur Specific [place] <= 1.005 (1.005-1.035) 06/13/17 01:03 Urine Protein Negative mg/dL (<30 mg/dL) 06/13/17 01:03 Urine Glucose (UA) Negative mg/dL (NEGATIVE) 06/13/17 01:03 Urine Ketones Negative mg/dL (NEGATIVE) 06/13/17 01:03 Urine Blood Small (NEGATIVE) H 06/13/17 01:03 Urine Nitrate Negative (NEGATIVE) 06/13/17 01:03 Urine Bilirubin Negative (NEGATIVE) 06/13/17 01:03 Urine Urobilinogen 0.2 E.U./dL (<1 E.U./dL) 06/13/17 01:03 Ur Leukocyte Esterase Small Jerardo/uL (NEGATIVE) H 06/13/17 01:03 Urine RBC 1 - 3 /hpf (0-2) 06/13/17 01:03 Urine WBC 2 - 5 /hpf (0-6) 06/13/17 01:03 Ur Epithelial Cells 1 - 3 /hpf (0-5) 06/13/17 01:03 Urine Bacteria Rare (NEG) 06/13/17 01:03 Urine HCG, Qual Negative (NEGATIVE) 06/13/17 01:03 Attending/Attestation - Attestation I have personally seen and examined this patient.: Yes I have fully participated in the care of the patient.: Yes I have reviewed all pertinent clinical information, including history, physical exam and plan: Yes Notes (Text): 06/13/17 16:38 attending note; Patient seen and examined with resident. Patient is [id number] female admitted with left sided abdominal pain. Transvaginal ultrasound showed left ovarian cyst/abscess. Patient is currently afebrile and nontoxic. Mild tenderness on palpation. F[employer] E[employer] DESIGNER evaluation appreciated. ultrasound reviewed. Less likely infectious cause. Possible ruptured ovarian cyst. Suggested to follow-up with FUEL EFF[employer]IENT [employer]OMOBILE DESIGNER next week. The patient was started on IV cefoxitin and flagyl. culture is pending. We'll discharge home with by mouth doxycycline and Flagyl. Follow-up culture results. repeat CBC was normal this morning. Tolerated diet well. Follow-up with PMD Dr. Beavers. Diagnosis; Ovarian cyst abdominal pain
--- NOTE | 2017-06-13 14:04 | CP.PCM.CON ---
History of Present Illness - History of Present Illness History of Present Illness: 21-year-old female admitted last night from emergency room due to lower abdominal discomfort. Patient found to have approximately 3 cm ovarian cyst as well as small amount of pelvic free fluid and possible dilated fallopian tube. Patient reports acute onset of pain last evening. Patient states the pain has slowly decreased over time. Patient reports pain is minimal at this time. Patient denies any fevers or chills, nausea or vomiting, vaginal discharge, abnormal vaginal bleeding. Patient has been afebrile since that hospital. Patient's white blood cell count normal. Past Patient History - Infectious Disease Hx of Infectious Diseases: None - Tetanus Immunizations Tetanus Immunization: Unknown - Past Social History Smoking Status: Never Smoked - CARDIAC Hx Cardiac Disorders: No - PULMONARY Hx Respiratory Disorders: Yes Hx Bronchitis: Yes - NEUROLOGICAL Hx Neurological Disorder: Yes Hx Migraine: Yes - HEENT Hx HEENT Problems: No - RENAL Hx Chronic Kidney Disease: No - ENDOCRINE/METABOLIC Hx Endocrine Disorders: No - HEMATOLOGICAL/ONCOLOGICAL Hx Blood Disorders: No - INTEGUMENTARY Hx Dermatological Problems: No - MUSCULOSKELETAL/RHEUMATOLOGICAL Hx Musculoskeletal Disorders: No Hx Falls: Yes (Syncope) - GASTROINTESTINAL Hx Gastrointestinal Disorders: No - GENITOURINARY/GYNECOLOGICAL Hx Genitourinary Disorders: No Other/Comment: Ovarian cyst, Ovian cyst rupture 01/2016 - PSYCHIATRIC Hx Psychophysiologic Disorder: No Hx Anxiety: No Hx Bipolar Disorder: No Hx Depression: No Hx Emotional Abuse: No Hx Hallucinations: No Hx Panic Symptoms: No Hx Post Traumatic Stress Disorder: No Hx Psychosis: No Hx Physical Abuse: No Hx Schizophrenia: No Hx Sexual Abuse: No Hx Substance Use: No (Pt denies) - SURGICAL HISTORY Hx Surgeries: No - ANESTHESIA Hx Anesthesia: No Hx Anesthesia Reactions: No Hx Malignant Hyperthermia: No Meds Home Medications: Home Medication List Medication Instructions Recorded Confirmed Type Doxycycline Hyclate 100 mg PO BID #14 capsule 06/13/17 Rx Metronidazole [Flagyl] 500 mg PO Q8 #21 tab 06/13/17 Rx traMADol [Ultram] 50 mg PO TID #10 tab 06/13/17 Rx Allergies/Adverse Reactions: Allergies Allergy/AdvReac Type Severity Reaction Status Date / Time cinnamon Allergy URTICARIA Verified 06/06/17 19:51 chocolate Allergy PAIN Uncoded 06/06/17 19:51 - Medications Medications: Current Medications Doxycycline Hyclate 100 mg/ (Sodium Chloride) 100 mls @ 100 mls/hr IVPB Q12H ELIANA PRN Reason: Protocol Sodium Chloride (Sodium Chloride 0.9%) 1,000 mls @ 100 mls/hr IV .Q10H [facility] Last Admin: 06/13/17 12:27 Dose: 100 mls/hr Cefoxitin Sodium 2 gm/ Sodium (Chloride) 100 mls @ 100 mls/hr IV Q6 ELIANA PRN Reason: Protocol Last Admin: 06/13/17 12:26 Dose: 100 mls/hr Ketorolac Tromethamine (Toradol) 30 mg IVP Q6 PRN PRN Reason: Pain, severe (8-10) Physical Exam - Constitutional Appears: Well, Toxic - GI/Abdominal Exam Additional comments: Soft/nondistended. No rebound. No guarding. Positive mild diffuse tenderness with deep palpation. Results - Vital Signs Recent Vital Signs: Last Vital Signs Temp 98.3 F 06/13/17 07:00 Pulse 76 06/13/17 07:00 Resp 20 06/13/17 07:00 BP 106/58 L 06/13/17 07:00 Pulse Ox 96 06/13/17 07:00 - Labs Result Diagrams: 06/13/17 06:45 06/13/17 06:45 Labs: Laboratory Results - last 24 hr 06/13/17 06/13/17 06/13/17 06:45 06:45 13:00 WBC 9.8 D RBC 4.29 Hgb 11.6 L Hct 34.9 L MCV 81.4 MCH 27.0 MCHC 33.2 RDW 12.5 Plt Count 260 MPV 9.8 Gran % 67.0 Lymph % (Auto) 27.2 [place] % (Auto) 5.4 Eos % (Auto) 0.3 L Baso % (Auto) 0.1 Gran # 6.59 H Lymph # 2.7 [place] # 0.5 Eos # 0.0 Baso # 0.01 PT 12.0 H INR 1.11 H APTT 29.5 Sodium 141 Potassium 3.8 Chloride 108 H Carbon Dioxide 23 Anion Gap 14 BUN 9 Creatinine 0.6 L Est GFR ( Amer) > 60 Est GFR (Non-Af Amer) > 60 Random Glucose 93 Calcium 8.7 Total Bilirubin 0.5 AST 24 ALT 28 Alkaline Phosphatase 54 Total Protein 6.8 Albumin 4.0 Globulin 2.8 Albumin/Globulin Ratio 1.4 - Imaging and Cardiology US - abdomen Status: Image reviewed by me, Report reviewed by me Assessment & Plan - Assessment and Plan (Free Text) Assessment: Episode of acute abdominal pain which is resolving. Ovarian cyst and possible dilated fallopian tube on ultrasound.--patient symptoms resolving. Patient stable at this time. Plan: I discussed with patient possible causes of symptoms as well as ultrasound findings. I recommend the patient to repeat CBC to ensure H&H stable. There is no evidence of PID or TOA at this time. Patient's pain has improved and patient is afebrile with normal white blood cell count. No evidence of any infectious etiology at this time. Patient will follow up with me next week. No further intervention needed at this time. If CBC is stable, plan for discharge home. - Date & Time Date: 06/13/17 Time: 14:04
[2017-06-14] MEDS ORDERED: cefOXitin Sodium 1 GM in Sodium Chloride 0.9% 100 ML IV SCH (10:00)
== END 2017-06-13 16:19 | disposition home or self-care (01) ==
LOC: ED 00:28 → ERH 04:19 → 5RNO 05:58
PROVIDERS: ADMIT Internal Medicine; ATTEND Internal Medicine
DX: N83.202 Unspecified ovarian cyst, left side (principal); R10.9 Unspecified abdominal pain
CPT/HCPCS: 76830; 80053; 81001; 83690; 84703; 85025; 85027; 85610; 85730; 87040; 87086; 87491; 87591; 96374; 99285; G0378; J0694; J1885; J7040

== ENCOUNTER 2017-06-15 21:21 | Emergency (ER) | payer MEDICAID ==
[2017-06-15 21:22] VITALS: BMI 23.6
[2017-06-15 22:11] VITALS: RESP 16; TEMP 99.6; O2SAT 99
--- NOTE | 2017-06-15 22:29 | ED PDOC ---
Arrival/HPI - General Chief Complaint: GI Problem Time Seen by Provider: 06/15/17 21:38 Historian: Patient - History of Present Illness Narrative History of Present Illness (Text): 06/15/17 22:28 21 year old female whose past medical history includes ovarian cysts, presents to the emergency department complaining of occasional nausea,episode of vomiting. Patient states she was here two days ago admitted for left sided abdominal pain,ovarian cyst r/out tubo-ovarian abscess. Patient was seen and evaluated by material planner discharged home on pain meds /antibiotics.No diagnosed abscess.Pt. states still with some discomfort but improved. Patient denies any fever, chills, chest pain, shortness of breath, diarrhea, urinary symptoms, neck pain, dizziness, or any other complaints. Time/Duration: Other (today) Symptom Onset: Gradual Symptom Course: Unchanged Activities at Onset: Light Context: Home Past Medical History - Provider Review Nursing Documentation Reviewed: Yes - Past History Past History: No Previous - Infectious Disease Hx of Infectious Diseases: None - Tetanus Immunization Tetanus Immunization: Unknown - Past Medical History Past Medical History: Non-Contributing - Cardiac Hx Cardiac Disorders: No - Pulmonary Hx Respiratory Disorders: Yes Hx Bronchitis: Yes - Neurological Hx Neurological Disorder: Yes Hx Migraine: Yes - HEENT Hx HEENT Disorder: No - Renal Hx Renal Disorder: No - Endocrine/Metabolic Hx Endocrine Disorders: No - Hematological/Oncological Hx Blood Disorders: No - Integumentary Hx Dermatological Disorder: No - Musculoskeletal/Rheumatological Hx Musculoskeletal Disorders: No Hx Falls: Yes (Syncope) - Gastrointestinal Hx Gastrointestinal Disorders: No - Genitourinary/Gynecological Hx Genitourinary Disorders: No Other/Comment: Ovarian cyst, Ovian cyst rupture 01/2016 - Psychiatric Hx Psychophysiologic Disorder: No Hx Substance Use: No (Pt denies) - Past Surgical History Past Surgical History: No Previous - Anesthesia Hx Anesthesia: No Hx Anesthesia Reactions: No Hx Malignant Hyperthermia: No - Suicidal Assessment Feels Threatened In Home Enviroment: No Family/Social History - Physician Review Nursing Documentation Reviewed: Yes Family/Social History: No Known Family HX Smoking Status: Never Smoked Hx Alcohol Use: Yes (social) Hx Substance Use: No (Pt denies) Substance used: cannabis Hx Substance Use Treatment: No Allergies/Home Meds Allergies/Adverse Reactions: Allergies cinnamon Allergy (Verified 06/06/17 19:51) URTICARIA chocolate Allergy (Uncoded 06/06/17 19:51) PAIN Review of Systems - Physician Review All systems were reviewed & negative as marked: Yes - Review of Systems Constitutional: absent: Fevers, Other (Chills) Respiratory: absent: SOB Cardiovascular: absent: Chest Pain Gastrointestinal: Abdominal Pain (left lower abdominal pain), Nausea, Vomiting. absent: Diarrhea Genitourinary Female: absent: Dysuria, Frequency, Hematuria Musculoskeletal: Back Pain. absent: Neck Pain Neurological: Headache. absent: Dizziness Physical Exam Vital Signs Temp Pulse Resp BP Pulse Ox 06/15/17 21:56 99.6 F 98 H 16 111/65 99 Temperature: Afebrile Blood Pressure: Normal Pulse: Regular Respiratory Rate: Normal Appearance: Positive for: Well-Appearing, Non-Toxic, Comfortable Pain Distress: None Mental Status: Positive for: Alert and Oriented X 3 - Systems Exam Head: Present: Atraumatic, Normocephalic Pupils: Present: PERRL Extroacular Muscles: Present: EOMI Conjunctiva: Present: Normal Mouth: Present: Moist Mucous Membranes Neck: Present: Normal Range of Motion Respiratory/Chest: Present: Clear to Auscultation, Good Air Exchange. No: Respiratory Distress, Accessory Muscle Use Cardiovascular: Present: Regular Rate and Rhythm, Normal S1, S2. No: Murmurs Abdomen: Present: Tenderness (minimal tenderness to the left abdomen), Normal Bowel Sounds. No: Distention, Peritoneal Signs Back: Present: Normal Inspection Upper Extremity: Present: Normal Inspection. No: Cyanosis, Edema Lower Extremity: Present: Normal Inspection. No: Edema Neurological: Present: GCS=15, CN II-XII Intact, Speech Normal, Motor Func Grossly Intact, Normal Sensory Function Skin: Present: Warm, Dry, Normal Color. No: Rashes Psychiatric: Present: Alert, Oriented x 3, Normal Insight, Normal Concentration Medical Decision Making ED Course and Treatment: 06/15/17 22:28 Impression: 21 year old female presents complaining of left lower abdominal pain associated with vomiting and back pain. Plan: -- labs -- Endoscopy -- Transvaginal Ultrasound -- Reassess and disposition Prior Visits: Notes and results from previous visits were reviewed. On 06/13/17 patient came in complaining of LLQ abdominal discomfort. Patient was admitted. Progress Notes: EXAM: US Pelvis, Transvaginal Dictated and Authenticated by: Eamon Carrillo MD 06/15/2017 11:58 PM FINDINGS: Uterus/cervix: Endometrial stripe is thickened measuring perhaps as much as 1.9 CM, but certainly at least 1.3 CM. Uterus measures 7.0 x 3.7 x 6.4 CM. No myometrial mass. Right ovary: Right ovary measures 3.3 x 1.5 x 3.2 CM. Normal blood flow. Left ovary: Left ovary again contains a complex hypoechoic lesion, only demonstrating peripheral blood flow, measuring 3.0 x 2.2 x 2.3 CM. Previously this measured 3.2 x 1.9 x 3.3 CM on 06/13/17. This may represent a complex or hemorrhagic cyst. Other etiologies are not entirely excluded. Please correlate clinically and if indicated followup can be obtained. Left ovary measures 4.8 x 3.5 x 4.0 CM. blood flow. Free fluid: Small amount of free fluid in the cul-de-sac. Bladder: Empty bladder which cannot be evaluated with this probe. IMPRESSION: 1. Endometrial stripe is thickened measuring perhaps as much as 1.9 CM, but certainly at least 1.3 CM. 2. Left ovary again contains a complex hypoechoic lesion, only demonstrating peripheral blood flow, measuring 3.0 x 2.2 x 2.3 CM. Previously this measured 3.2 x 1.9 x 3.3 CM on 06/13/17. This may represent a complex or hemorrhagic cyst. Other etiologies are not entirely excluded. Please correlate clinically and if indicated followup can be obtained. - Lab Interpretations Lab Results: 06/15/17 22:50 06/15/17 22:50 Lab Results 06/15/17 22:50: WBC 6.7 D, RBC 4.53, Hgb 12.3, Hct 36.9, MCV 81.5, MCH 27.2, MCHC 33.3, RDW 12.4, Plt Count 260, MPV 10.2 06/15/17 22:50: Sodium 138, Potassium 3.8, Chloride 101, Carbon Dioxide 25, Anion Gap 16, BUN 9, Creatinine 0.7, Est GFR ( Amer) > 60, Est GFR (Non- Af Amer) > 60, Random Glucose 112 H, Calcium 9.3, Total Bilirubin 0.4, AST 22, ALT 27, Alkaline Phosphatase 61, Total Protein 7.5, Albumin 4.4, Globulin 3.1, Albumin/Globulin Ratio 1.4 - RAD Interpretation Radiology Orders: 06/15/17 22:29 TRANSVAGINAL [US] Stat - Medication Orders Current Medication Orders: Discontinued Medications Ketorolac Tromethamine (Toradol) 30 mg IVP ONCE ONE Stop: 06/16/17 00:23 Last Admin: 06/16/17 01:19 Dose: 30 mg Ondansetron HCl (Zofran Odt) 4 mg PO STAT STA Stop: 06/16/17 01:17 - Scribe Statement The provider has reviewed the documentation as recorded by the Fay Bartlett Provider Scribe Attestation: All medical record entries made by the Abelardoibe were at my direction and personally dictated by me. I have reviewed the chart and agree that the record accurately reflects my personal performance of the history, physical exam, medical decision making, and the department course for this patient. I have also personally directed, reviewed, and agree with the discharge instructions and disposition. Disposition/Present on Arrival - Present on Arrival Any Indicators Present on Arrival: No History of DVT/PE: No History of Uncontrolled Diabetes: No Urinary Catheter: No History of Decub. Ulcer: No History Surgical Site Infection Following: None - Disposition Have Diagnosis and Disposition been Completed?: Yes Diagnosis: Ovarian cyst, Nausea & vomiting Disposition: HOME/ ROUTINE Disposition Time: 01:15 Patient Plan: Discharge Patient Problems: Current Active Problems Problem Status Onset Nausea & vomiting Acute Ovarian cyst Acute Condition: STABLE Additional Instructions: Continue current meds/Take medication as prescribed/follow up this week with your seam presser this week/any worsening symptoms return to the emergency room Prescriptions: Ondansetron [Zofran Odt] 4 mg PO Q6 #12 odt Forms: [employer] (Hebrew)
[2017-06-15 23:05] LABS: HEMATOCRIT 36.9 % (36.0-48.0); MEAN CELL VOLUME 81.5 fl (80.0-105.0); MEAN CORPUSCULAR HEMOGLOBIN 27.2 pg (25.0-35.0); MEAN CORPUSCULAR HGB CONC 33.3 g/dl (31.0-37.0); MEAN PLATELET VOLUME 10.2 fl (7.0-11.0); RED CELL DISTRIBUTION WIDTH 12.4 % (11.5-14.5); WHITE BLOOD COUNT 6.7 10^3/ul (4.5-11.0)
[2017-06-15 23:15] LABS: ALB/GLOB RATIO 1.4 (1.1-1.8); ALKALINE PHOSPHATASE 61 U/L (38-126); ALT/SGPT 27 U/L (7-56); AST/SGOT 22 U/L (14-36); BILIRUBIN,TOTAL 0.4 mg/dL (0.2-1.3); BLOOD UREA NITROGEN 9 mg/dL (7-21); CALCIUM 9.3 mg/dL (8.4-10.5); CARBON DIOXIDE 25 mmol/L (21-33); CHLORIDE 101 mmol/L (98-107); GFR AFRICAN-AMERICAN > 60; GLUCOSE,RANDOM 112 mg/dL (70-110); POTASSIUM 3.8 mmol/L (3.6-5.0); SODIUM 138 mmol/L (132-148); TOTAL PROTEIN 7.5 g/dL (5.8-8.3)
--- NOTE | 2017-06-16 04:06 | US ---
EXAM: US Pelvis, Transvaginal CLINICAL HISTORY: 21 years old, female; Pain; Pelvic pain; Additional info: Left sided abdominal pain TECHNIQUE: Real-time transvaginal pelvic ultrasound (complete) with image documentation. Transvaginal imaging was used for better evaluation of the endometrium and adnexa. COMPARISON: US - TRANSVAGINAL 06/13/2017 2:16:12 AM FINDINGS: Uterus/cervix: Endometrial stripe is thickened measuring perhaps as much as 1.9 CM, but certainly at least 1.3 CM. Uterus measures 7.0 x 3.7 x 6.4 CM. No myometrial mass. Right ovary: Right ovary measures 3.3 x 1.5 x 3.2 CM. Normal blood flow. Left ovary: Left ovary again contains a complex hypoechoic lesion, only demonstrating peripheral blood flow, measuring 3.0 x 2.2 x 2.3 CM. Previously this measured 3.2 x 1.9 x 3.3 CM on 06/13/17. This may represent a complex or hemorrhagic cyst. Other etiologies are not entirely excluded. Please correlate clinically and if indicated followup can be obtained. Left ovary measures 4.8 x 3.5 x 4.0 CM. blood flow. Free fluid: Small amount of free fluid in the cul-de-sac. Bladder: Empty bladder which cannot be evaluated with this probe. IMPRESSION: 1. Endometrial stripe is thickened measuring perhaps as much as 1.9 CM, but certainly at least 1.3 CM. 2. Left ovary again contains a complex hypoechoic lesion, only demonstrating peripheral blood flow, measuring 3.0 x 2.2 x 2.3 CM. Previously this measured 3.2 x 1.9 x 3.3 CM on 06/13/17. This may represent a complex or hemorrhagic cyst. Other etiologies are not entirely excluded. Please correlate clinically and if indicated followup can be obtained.
[2017-06-16 04:26] VITALS: BP 116/68; PULSE 82
== END 2017-06-16 01:43 | disposition home or self-care (01) ==
LOC: ED 21:21
DX: N83.202 Unspecified ovarian cyst, left side (principal); R11.2 Nausea with vomiting, unspecified
CPT/HCPCS: 76830; 80053; 85027; 96374; 99285; J1885

== ENCOUNTER 2018-01-03 19:23 | Emergency (ER) | payer MEDICAID ==
[2018-01-03 19:50] VITALS: BMI 24.3
[2018-01-03 19:56] VITALS: BP 105/58; PULSE 78; RESP 18; TEMP 98.2; O2SAT 98
--- NOTE | 2018-01-03 20:07 | ED PDOC ---
Arrival/HPI - General Chief Complaint: Abnormal Skin Integrity Time Seen by Provider: 01/03/18 19:53 Historian: Patient - History of Present Illness Narrative History of Present Illness (Text): 01/03/18 20:04 A 22 year old female, with no significant past medical history, presents to the emergency department for evaluation of left and right arm rash. Patient reports having symptom for couple of weeks. States itchiness to area. Patient denies any known trauma, nor any tenderness. No PMD Past Medical History - Provider Review Nursing Documentation Reviewed: Yes - Past History Past History: No Previous - Infectious Disease Hx of Infectious Diseases: None - Tetanus Immunization Tetanus Immunization: Unknown - Past Medical History Past Medical History: Non-Contributing - Cardiac Hx Cardiac Disorders: No - Pulmonary Hx Respiratory Disorders: Yes Hx Bronchitis: Yes - Neurological Hx Neurological Disorder: Yes Hx Migraine: Yes - HEENT Hx HEENT Disorder: No - Renal Hx Renal Disorder: No - Endocrine/Metabolic Hx Endocrine Disorders: No - Hematological/Oncological Hx Blood Disorders: No - Integumentary Hx Dermatological Disorder: No - Musculoskeletal/Rheumatological Hx Musculoskeletal Disorders: No Hx Falls: Yes (Syncope) - Gastrointestinal Hx Gastrointestinal Disorders: No - Genitourinary/Gynecological Other/Comment: Ovarian cyst, Ovian cyst rupture 01/2016. Endometriosis - Psychiatric Hx Psychophysiologic Disorder: No Hx Substance Use: No (Pt denies) - Past Surgical History Past Surgical History: No Previous - Anesthesia Hx Anesthesia: No Hx Anesthesia Reactions: No Hx Malignant Hyperthermia: No - Suicidal Assessment Feels Threatened In Home Enviroment: No Family/Social History - Physician Review Nursing Documentation Reviewed: Yes Family/Social History: No Known Family HX Smoking Status: Never Smoked Hx Alcohol Use: Yes (social) Hx Substance Use: No (Pt denies) Substance used: cannabis Hx Substance Use Treatment: No Allergies/Home Meds Allergies/Adverse Reactions: Allergies cinnamon Allergy (Verified 09/15/17 00:46) URTICARIA chocolate Allergy (Uncoded 09/15/17 00:46) PAIN Review of Systems - Physician Review All systems were reviewed & negative as marked: Yes - Review of Systems Constitutional: absent: Fevers, Night Sweats Respiratory: absent: SOB, Cough Cardiovascular: absent: Chest Pain Gastrointestinal: absent: Abdominal Pain, Diarrhea, Nausea, Vomiting Skin: Rash (left and right arm), Pruritis (left and right arm) Neurological: absent: Headache, Dizziness Physical Exam Vital Signs Reviewed: Yes Vital Signs Temp Pulse Resp BP Pulse Ox 01/03/18 19:55 98.2 F 78 18 105/58 L 98 Temperature: Afebrile Blood Pressure: Normal Pulse: Regular Respiratory Rate: Normal Appearance: Positive for: Well-Appearing Pain Distress: None Mental Status: Positive for: Alert and Oriented X 3 - Systems Exam Head: Present: Atraumatic, Normocephalic Pupils: Present: PERRL Extroacular Muscles: Present: EOMI Conjunctiva: Present: Normal Mouth: Present: Moist Mucous Membranes Pharnyx: Present: Normal Respiratory/Chest: Present: Clear to Auscultation, Good Air Exchange. No: Respiratory Distress, Accessory Muscle Use Cardiovascular: Present: Regular Rate and Rhythm, Normal S1, S2. No: Murmurs Abdomen: No: Tenderness, Distention, Peritoneal Signs Upper Extremity: Present: Normal Inspection. No: Cyanosis, Edema Lower Extremity: Present: Normal Inspection. No: Edema Neurological: Present: GCS=15, CN II-XII Intact, Speech Normal, Motor Func Grossly Intact, Normal Sensory Function Skin: Present: Rashes (2 discrete circinate lesions slightly raised borders/ scaly/non erythematous ~2-2.5 cm) Psychiatric: Present: Alert, Oriented x 3, Normal Insight, Normal Concentration Medical Decision Making ED Course and Treatment: 01/03/18 20:08 Impression: 22 year old female with rash to left and right arm. Differential Diagnosis included but are not limited to: Ringworm vs. Dermatitis Plan: -- Reassess and disposition Progress Notes: - Scribe Statement The provider has reviewed the documentation as recorded by the Fay Kolb Provider Scribe Attestation: All medical record entries made by the Abelardoibjose were at my direction and personally dictated by me. I have reviewed the chart and agree that the record accurately reflects my personal performance of the history, physical exam, medical decision making, and the department course for this patient. I have also personally directed, reviewed, and agree with the discharge instructions and disposition. Disposition/Present on Arrival - Present on Arrival Any Indicators Present on Arrival: No History of DVT/PE: No History of Uncontrolled Diabetes: No Urinary Catheter: No History of Decub. 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
== END 2018-01-03 20:35 | disposition home or self-care (01) ==
LOC: ED 19:23
DX: B35.4 Tinea corporis (principal)

== ENCOUNTER 2018-01-18 17:01 | Emergency (ER) | payer MEDICAID ==
[2018-01-18 17:01] VITALS: BMI 24.3
[2018-01-18 17:08] VITALS: TEMP 98.5
[2018-01-18] MEDS ORDERED: Tobramycin 0.3% OPHT SOLN OS STA (17:17)
--- NOTE | 2018-01-18 17:22 | ED PDOC ---
Arrival/HPI - General Chief Complaint: Eye Problem Time Seen by Provider: 01/18/18 17:09 Historian: Patient - History of Present Illness Narrative History of Present Illness (Text): 01/18/18 17:18 22yo female with no PMHx who present with complaint of right eye redness, swelling, pain, purulent discharge since yesterday. States it started with a lump on her lower eyelid, which drained and then she started having the symptoms. States she feels blurry, but denies visual acuity change. Denies any other complaint. Past Medical History - Provider Review Nursing Documentation Reviewed: Yes - Past History Past History: No Previous - Infectious Disease Hx of Infectious Diseases: None - Tetanus Immunization Tetanus Immunization: Unknown - Past Medical History Past Medical History: Non-Contributing - Cardiac Hx Cardiac Disorders: No - Pulmonary Hx Respiratory Disorders: Yes Hx Bronchitis: Yes - Neurological Hx Neurological Disorder: Yes Hx Migraine: Yes - HEENT Hx Glaucoma: Yes - Renal Hx Renal Disorder: No - Endocrine/Metabolic Hx Endocrine Disorders: No - Hematological/Oncological Hx Blood Disorders: No - Integumentary Hx Dermatological Disorder: No - Musculoskeletal/Rheumatological Hx Musculoskeletal Disorders: No Hx Falls: Yes (Syncope) - Gastrointestinal Hx Gastrointestinal Disorders: No - Genitourinary/Gynecological Other/Comment: Ovarian cyst, Ovian cyst rupture 01/2016. Endometriosis - Psychiatric Hx Psychophysiologic Disorder: No Hx Substance Use: No (Pt denies) - Past Surgical History Past Surgical History: No Previous - Anesthesia Hx Anesthesia: No Hx Anesthesia Reactions: No Hx Malignant Hyperthermia: No - Suicidal Assessment Feels Threatened In Home Enviroment: No Family/Social History - Physician Review Nursing Documentation Reviewed: Yes Family/Social History: Unknown Family HX Smoking Status: Never Smoked Hx Alcohol Use: Yes (social) Hx Substance Use: No (Pt denies) Substance used: cannabis Hx Substance Use Treatment: No Allergies/Home Meds Allergies/Adverse Reactions: Allergies cinnamon Allergy (Verified 09/15/17 00:46) URTICARIA chocolate Allergy (Uncoded 09/15/17 00:46) PAIN Home Medications: Home Meds Medication Instructions Recorded Confirmed No Known Home Med 01/18/18 01/18/18 Review of Systems - Physician Review All systems were reviewed & negative as marked: Yes - Review of Systems Constitutional: Normal Eyes: Eye Pain, Other (Right eye redness/discharge) ENT: Normal Respiratory: Normal Cardiovascular: Normal Gastrointestinal: Normal Genitourinary Female: Normal Musculoskeletal: Normal Skin: Normal Neurological: Normal Endocrine: Normal Hemo/Lymphatic: Normal Psychiatric: Normal Physical Exam Vital Signs Reviewed: Yes Vital Signs Temp Pulse Resp BP Pulse Ox 01/18/18 17:04 98.5 F 94 H 18 117/75 99 Temperature: Afebrile Blood Pressure: Normal Pulse: Regular Respiratory Rate: Normal Appearance: Positive for: Well-Appearing, Non-Toxic, Comfortable Pain Distress: None Mental Status: Positive for: Alert and Oriented X 3 - Systems Exam Head: Present: Atraumatic, Normocephalic Pupils: Present: PERRL Extroacular Muscles: Present: EOMI Conjunctiva: Present: Injected. No: Icteric (Red right conjunctivae) Mouth: Present: Moist Mucous Membranes Neck: Present: Normal Range of Motion Respiratory/Chest: Present: Clear to Auscultation, Good Air Exchange. No: Respiratory Distress, Accessory Muscle Use Cardiovascular: Present: Regular Rate and Rhythm, Normal S1, S2. No: Murmurs Abdomen: No: Tenderness, Distention, Peritoneal Signs Back: Present: Normal Inspection Upper Extremity: Present: Normal Inspection. No: Cyanosis, Edema Lower Extremity: Present: Normal Inspection. No: Edema Neurological: Present: GCS=15, CN II-XII Intact, Speech Normal Skin: Present: Warm, Dry, Normal Color. No: Rashes Psychiatric: Present: Alert, Oriented x 3, Normal Insight, Normal Concentration Medical Decision Making - Medication Orders Current Medication Orders: Tobramycin Sulfate (Tobrex 0.3% Ophth Soln) 2 drop OS STAT STA Stop: 01/18/18 17:18 Disposition/Present on Arrival - Present on Arrival Any Indicators Present on Arrival: No History of DVT/PE: No History of Uncontrolled Diabetes: No Urinary Catheter: No History of Decub. Ulcer: No History Surgical Site Infection Following: None - Disposition Have Diagnosis and Disposition been Completed?: Yes Diagnosis: Acute conjunctivitis Disposition: HOME/ ROUTINE Disposition Time: 17:25 Patient Plan: Discharge Condition: STABLE Discharge Instructions (ExitCare): Conjunctivitis ([place]) Additional Instructions: Wash hands, use drops as directed and follow up with your Doctor Return to ED for any new or worsening symptoms Referrals: Falguni Beavers MD [Primary Care Provider] - Follow up with primary Edy Rutherford MD [Staff Provider] - Follow up with primary
[2018-01-18 17:56] VITALS: BP 119/80; PULSE 89; RESP 17; O2SAT 100
== END 2018-01-18 18:00 | disposition home or self-care (01) ==
LOC: ED 17:01
DX: H10.31 Unspecified acute conjunctivitis, right eye (principal)

== ENCOUNTER 2018-02-05 18:32 | Emergency (ER) | payer MEDICAID ==
[2018-02-05 19:01] VITALS: BMI 27.1
[2018-02-05 19:02] VITALS: BP 114/67; PULSE 81; RESP 17; TEMP 98.5; O2SAT 99
--- NOTE | 2018-02-05 19:16 | ED PDOC ---
Arrival/HPI - General Time Seen by Provider: 02/05/18 18:48 Historian: Patient - History of Present Illness Narrative History of Present Illness (Text): 02/05/18 19:11 22yo female with PMHx of Asthma who present with complaint of rash to her b/l upper arms and left lower leg x one week. States the rash is pruritic and the right arm rash started having purulent discharge. She denies any inciting factors. Denies drooling, stridor, any other complaint. Past Medical History - Provider Review Nursing Documentation Reviewed: Yes - Past History Past History: No Previous - Infectious Disease Hx of Infectious Diseases: None - Tetanus Immunization Tetanus Immunization: Unknown - Past Medical History Past Medical History: Non-Contributing - Cardiac Hx Cardiac Disorders: No - Pulmonary Hx Respiratory Disorders: Yes Hx Bronchitis: Yes - Neurological Hx Neurological Disorder: Yes Hx Migraine: Yes - HEENT Hx Glaucoma: Yes - Renal Hx Renal Disorder: No - Endocrine/Metabolic Hx Endocrine Disorders: No - Hematological/Oncological Hx Blood Disorders: No - Integumentary Hx Dermatological Disorder: No - Musculoskeletal/Rheumatological Hx Musculoskeletal Disorders: No Hx Falls: Yes (Syncope) - Gastrointestinal Hx Gastrointestinal Disorders: No - Genitourinary/Gynecological Other/Comment: Ovarian cyst, Ovian cyst rupture 01/2016. Endometriosis - Psychiatric Hx Psychophysiologic Disorder: No Hx Substance Use: No (Pt denies) - Past Surgical History Past Surgical History: No Previous - Anesthesia Hx Anesthesia: No Hx Anesthesia Reactions: No Hx Malignant Hyperthermia: No - Suicidal Assessment Feels Threatened In Home Enviroment: No Family/Social History - Physician Review Nursing Documentation Reviewed: Yes Family/Social History: Unknown Family HX Smoking Status: Never Smoked Hx Alcohol Use: Yes (social) Hx Substance Use: No (Pt denies) Substance used: cannabis Hx Substance Use Treatment: No Allergies/Home Meds Allergies/Adverse Reactions: Allergies cinnamon Allergy (Verified 09/15/17 00:46) URTICARIA chocolate Allergy (Uncoded 09/15/17 00:46) PAIN Review of Systems - Physician Review All systems were reviewed & negative as marked: Yes - Review of Systems Constitutional: Normal Eyes: Normal ENT: Normal Respiratory: Normal Cardiovascular: Normal Gastrointestinal: Normal Genitourinary Female: Normal Musculoskeletal: Normal Skin: Rash, Pruritis Neurological: Normal Endocrine: Normal Hemo/Lymphatic: Normal Psychiatric: Normal Physical Exam Vital Signs Reviewed: Yes Vital Signs Temp Pulse Resp BP Pulse Ox 02/05/18 19:01 98.5 F 81 17 114/67 99 Temperature: Afebrile Blood Pressure: Normal Pulse: Regular Respiratory Rate: Normal Appearance: Positive for: Well-Appearing, Non-Toxic, Comfortable Pain Distress: None Mental Status: Positive for: Alert and Oriented X 3 - Systems Exam Head: Present: Atraumatic, Normocephalic Pupils: Present: PERRL Extroacular Muscles: Present: EOMI Conjunctiva: Present: Normal Mouth: Present: Moist Mucous Membranes Neck: Present: Normal Range of Motion Respiratory/Chest: Present: Clear to Auscultation, Good Air Exchange. No: Respiratory Distress, Accessory Muscle Use Cardiovascular: Present: Regular Rate and Rhythm, Normal S1, S2. No: Murmurs Abdomen: No: Tenderness, Distention, Peritoneal Signs Back: Present: Normal Inspection Upper Extremity: Present: Normal Inspection. No: Cyanosis, Edema Lower Extremity: Present: Normal Inspection. No: Edema Neurological: Present: GCS=15, CN II-XII Intact, Speech Normal Skin: Present: Warm, Dry, Rashes (Annular shaped rash with central clearing and papilloform rash to b/l uuper arm and left leg. Right upper arm rash noted with surrounding erythema and seroganious drainage), Normal Color Psychiatric: Present: Alert, Oriented x 3, Normal Insight, Normal Concentration Medical Decision Making - Medication Orders Current Medication Orders: Discontinued Medications Cephalexin Monohydrate (Keflex) 500 mg PO STAT STA PRN Reason: Protocol Stop: 02/05/18 19:20 Last Admin: 02/05/18 19:36 Dose: 500 mg Trimethoprim/Sulfamethoxazole (Bactrim Ds Tab) 1 tab PO STAT STA PRN Reason: Protocol Stop: 02/05/18 19:20 Last Admin: 02/05/18 19:36 Dose: 1 tab Disposition/Present on Arrival - Present on Arrival Any Indicators Present on Arrival: No History of DVT/PE: No History of Uncontrolled Diabetes: No Urinary Catheter: No History Surgical Site Infection Following: None - Disposition Have Diagnosis and Disposition been Completed?: Yes Diagnosis: Tinea corporis, Cellulitis Disposition: HOME/ ROUTINE Disposition Time: 19:45 Patient Plan: Discharge Condition: STABLE Discharge Instructions (ExitCare): Cellulitis (ED), Ringworm (DC) Additional Instructions: 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 Sulfamethoxazole/Trimethoprim [Bactrim DS 800 mg-160 mg] 1 tab PO BID #14 tab Referrals: Falguni Beavers MD [Primary Care Provider] - Follow up with primary Jazmyne Bro MD [Staff Provider] - Follow up with primary
[2018-02-05] MEDS ORDERED: Tmp-Smz 800 mg-160 mg DS Tab PO STA (19:19)
== END 2018-02-05 19:54 | disposition home or self-care (01) ==
LOC: ED 18:32
DX: B35.4 Tinea corporis (principal); L03.90 Cellulitis, unspecified

== ENCOUNTER 2018-11-24 10:34 | Emergency (ER) | payer MEDICAID ==
[2018-11-24 10:42] VITALS: BMI 23.6
[2018-11-24 10:47] VITALS: BP 116/77; PULSE 96; RESP 18; O2SAT 98
[2018-11-24 10:54] VITALS: TEMP 98.3
--- NOTE | 2018-11-24 10:55 | ED PDOC ---
Arrival/HPI - General Historian: Patient - History of Present Illness Narrative History of Present Illness (Text): 23 y/o female with no significant PMH presents to the ED c/o rash x 1 year. Rash is pruritic when it appears and consists of discrete rounded scaly areas of skin that erupt, and then disappear leaving a darkened area of skin behind. This rash has appeared on her extremities, trunk, and face. She currently has lesions on her right mid back and on the skin between her breasts. Pt has tried multiple treatments in the past, prescribed by ED and PMD, including oral antifungals and multiple creams. She says ketoconazole cream has worked to relieve symptoms temporarily. Denies recent travel or sick contacts. Denies fevers, chills, abdominal pain, nausea, vomiting, diarrhea, back pain, dizziness, headache, or any other associated symptoms. <Hyacinth Hinson - Last Filed: 11/24/18 23:12> <Eulogio Alexandra - Last Filed: 11/25/18 07:18> - General Chief Complaint: Abnormal Skin Integrity Time Seen by Provider: 11/24/18 10:35 Past Medical History - Past History Past History: No Previous - Infectious Disease Hx of Infectious Diseases: None - Tetanus Immunization Tetanus Immunization: Unknown - Past Medical History Past Medical History: Non-Contributing - Cardiac Hx Cardiac Disorders: No - Pulmonary Hx Respiratory Disorders: Yes Hx Bronchitis: Yes - Neurological Hx Neurological Disorder: Yes Hx Migraine: Yes - HEENT Hx Glaucoma: Yes - Renal Hx Renal Disorder: No - Endocrine/Metabolic Hx Endocrine Disorders: No - Hematological/Oncological Hx Blood Disorders: No - Integumentary Hx Dermatological Disorder: No - Musculoskeletal/Rheumatological Hx Musculoskeletal Disorders: No Hx Falls: Yes (Syncope) - Gastrointestinal Hx Gastrointestinal Disorders: No - Genitourinary/Gynecological Hx Genitourinary Disorders: Yes Other/Comment: Ovarian cyst, Ovian cyst rupture 01/2016. Endometriosis - Psychiatric Hx Psychophysiologic Disorder: No Hx Substance Use: No (Pt denies) - Past Surgical History Past Surgical History: No Previous - Anesthesia Hx Anesthesia: No Hx Anesthesia Reactions: No Hx Malignant Hyperthermia: No - Suicidal Assessment Feels Threatened In Home Enviroment: No <Hyacinth Hinson - Last Filed: 11/24/18 23:12> Family/Social History - Physician Review Nursing Documentation Reviewed: Yes Family/Social History: No Known Family HX Smoking Status: Never Smoked Hx Alcohol Use: Yes (social) Frequency of alcohol use: Socially Hx Substance Use: No (Pt denies) Substance used: cannabis Hx Substance Use Treatment: No <GelynancieHyacinth - Last Filed: 11/24/18 23:12> Allergies/Home Meds <JoyaHyacinth - Last Filed: 11/24/18 23:12> <Eulogio Alexandra - Last Filed: 11/25/18 07:18> Allergies/Adverse Reactions: Allergies cinnamon Allergy (Verified 09/15/17 00:46) URTICARIA chocolate Allergy (Uncoded 09/15/17 00:46) PAIN Review of Systems - Review of Systems Constitutional: Normal. absent: Fatigue, Fevers Eyes: Normal. absent: Vision Changes ENT: Normal. absent: Sore Throat, Sinus Congestion Respiratory: Normal. absent: SOB, Cough Cardiovascular: Normal. absent: Chest Pain, Palpitations Gastrointestinal: Normal. absent: Abdominal Pain, Nausea, Vomiting Genitourinary Female: Normal. absent: Dysuria, Frequency Musculoskeletal: Normal. absent: Arthralgias, Back Pain Skin: Rash. absent: Pruritis Neurological: Normal. absent: Headache, Dizziness Endocrine: Normal Hemo/Lymphatic: Normal Psychiatric: Normal <Martin Hinsonyssa - Last Filed: 11/24/18 23:12> Physical Exam Vital Signs Reviewed: Yes Vital Signs Temp Pulse Resp BP Pulse Ox 11/24/18 10:54 98.3 F 11/24/18 10:47 96 H 18 116/77 98 Temperature: Afebrile Blood Pressure: Normal Pulse: Regular Respiratory Rate: Normal Appearance: Positive for: Well-Appearing, Non-Toxic, Comfortable Pain Distress: None Mental Status: Positive for: Alert and Oriented X 3 - Systems Exam Head: Present: Atraumatic, Normocephalic Pupils: Present: PERRL Extroacular Muscles: Present: EOMI Conjunctiva: Present: Normal Mouth: Present: Moist Mucous Membranes Neck: Present: Normal Range of Motion. No: Meningeal Signs, Paraspinal Tenderness Respiratory/Chest: Present: Clear to Auscultation, Good Air Exchange. No: Respiratory Distress, Accessory Muscle Use Cardiovascular: Present: Regular Rate and Rhythm, Normal S1, S2, Peripheal Pulses Present Breast/Axillary: Present: Other (SKin between breasts; discrete, rounded areas of erythema with central clearing and scaling suspicious for tinea. No signs of secondary bacterial infection.). No: Swelling Back: Present: Other (see skin exam) Upper Extremity: Present: Normal ROM, NORMAL PULSES, Neurovascularly Intact, Capillary Refill < 2s. No: Normal Inspection (several discrete areas of darker pigmented skin), Cyanosis, Edema, Temperature Abnormalties Lower Extremity: Present: Normal ROM Neurological: Present: GCS=15, CN II-XII Intact, Speech Normal, Motor Func Gr ossly Intact, Normal Sensory Function, Gait Normal Skin: Present: Warm, Dry, Rashes, Other (Right mid-back: discrete, rounded areas of erythema with central clearing and scaling suspicious for tinea. No signs of secondary bacterial infection.). No: Erythematous Psychiatric: Present: Alert, Oriented x 3, Normal Insight, Normal Concentration, Normal Affect, Normal Mood <Hyacinth Hinson - Last Filed: 11/24/18 23:12> Vital Signs Temp Pulse Resp BP Pulse Ox 11/24/18 10:54 98.3 F 11/24/18 10:47 96 H 18 116/77 98 <Eulogio Alexandra - Last Filed: 11/25/18 07:18> Medical Decision Making ED Course and Treatment: Skin exam suspicious for tinea infection. Will prescribe ketoconazole, as pt states it has improved symptoms in the past. Advised forge hand followup. Diagnostic testing results and plan of care discussed with patient. Strict instructions given regarding prescription use, importance of followup, and signs/symptoms to return to ER including fever, chills, abdominal pain, or any other new/worsening symptoms. Pt verbalized understanding of discussion. Patient is A&Ox3, ambulating with steady gait, with vital signs stable for discharge. 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 <Eulogio Alexandra - Last Filed: 11/25/18 07:18> Disposition/Present on Arrival - Present on Arrival Any Indicators Present on Arrival: No History of DVT/PE: No History of Uncontrolled Diabetes: No Urinary Catheter: No History of Decub. Ulcer: No History Surgical Site Infection Following: None - Disposition Have Diagnosis and Disposition been Completed?: Yes Disposition Time: 10:48 <Hyacinth Hinson - Last Filed: 11/24/18 23:12> <Eulogio Alexandra - Last Filed: 11/25/18 07:18> - Disposition Diagnosis: Tinea corporis Disposition: HOME/ ROUTINE Condition: STABLE Discharge Instructions (ExitCare): Ringworm (DC) Additional Instructions: Apply Ketoconazole daily to affected areas on clean skin for 4 weeks Followup with dermatology within 2 days Followup with primary doctor within 2 days Return to ER with any new/worsening symptoms Prescriptions: Ketoconazole 2% Cr [Nizoral] 1 applic TOP DAILY #2 tube Referrals: Jazmyne Bro MD [Staff Provider] - Follow up with primary Annette Sahu MD [Medical Doctor] - Follow up with primary [facility] [place] [place] [Outside] - Follow up with primary Forms: [facility] (Hungarian), WORK NOTE
== END 2018-11-24 11:28 | disposition home or self-care (01) ==
LOC: ED 10:34
DX: B35.4 Tinea corporis (principal)

== ENCOUNTER 2018-12-12 10:47 | Emergency (ER) | payer MEDICAID ==
[2018-12-12 11:01] VITALS: BMI 24.9
[2018-12-12 11:02] VITALS: RESP 18; TEMP 98.4
--- NOTE | 2018-12-12 11:30 | ED PDOC ---
Arrival/HPI - General Chief Complaint: ENT Problem Time Seen by Provider: 12/12/18 11:17 - History of Present Illness Narrative History of Present Illness (Text): 23 yr old F w/ hx of tonsillitis, tinea, TOA p/w throat pain and mild throat swelling x2d. She notes burning throat pain x2d after being in contact with a sick contact. No recent travel or rash. No change in phonation, and mild difficulty with swallowing solids. Pt tolerated Nyquil last night without issue and has been using numbing spray to her throat with good effect. No difficulty breathing. No headache or neck stiffness. Pt notes that her current symptoms feel like her previous tonsillitis for which she was seen here 3 years ago. She notes that at that time the antibiotics given the second time helped and that she saw and ENT in [place], [place] who reccomended potential eventual tonsillectomy. No recent dental work or eating any fish. No fever, chills or night sweats No chest pain or sob No abdominal pain No complaints No fall or trauma Past Medical History - Provider Review Nursing Documentation Reviewed: Yes - Past History Past History: No Previous - Infectious Disease Hx of Infectious Diseases: None - Tetanus Immunization Tetanus Immunization: Unknown - Past Medical History Past Medical History: Non-Contributing - Cardiac Hx Cardiac Disorders: No - Pulmonary Hx Respiratory Disorders: Yes Hx Bronchitis: Yes - Neurological Hx Neurological Disorder: Yes Hx Migraine: Yes - HEENT Hx Glaucoma: Yes - Renal Hx Renal Disorder: No - Endocrine/Metabolic Hx Endocrine Disorders: No - Hematological/Oncological Hx Blood Disorders: No - Integumentary Hx Dermatological Disorder: No - Musculoskeletal/Rheumatological Hx Musculoskeletal Disorders: No Hx Falls: Yes (Syncope) - Gastrointestinal Hx Gastrointestinal Disorders: No - Genitourinary/Gynecological Hx Genitourinary Disorders: Yes Other/Comment: Ovarian cyst, Ovian cyst rupture 01/2016. Endometriosis - Psychiatric Hx Psychophysiologic Disorder: No Hx Substance Use: No (Pt denies) - Past Surgical History Past Surgical History: No Previous - Anesthesia Hx Anesthesia: No Hx Anesthesia Reactions: No Hx Malignant Hyperthermia: No - Suicidal Assessment Feels Threatened In Home Enviroment: No Family/Social History Family/Social History: Unknown Family HX Smoking Status: Never Smoked Hx Alcohol Use: Yes Frequency of alcohol use: Socially Hx Substance Use: No (Pt denies) Substance used: cannabis Hx Substance Use Treatment: No Allergies/Home Meds Allergies/Adverse Reactions: Allergies cinnamon Allergy (Verified 12/12/18 11:01) URTICARIA chocolate Allergy (Uncoded 12/12/18 11:01) PAIN Review of Systems - Review of Systems Constitutional: absent: Fatigue, Weight Change, Fevers, Night Sweats Eyes: absent: Vision Changes, Photophobia, Eye Pain ENT: Sore Throat. absent: Hearing Changes, Tinnitus, TMJ Pain, Voice Changes, Rhinorrhea, Epistaxis, Sinus Congestion Respiratory: absent: SOB, Cough, Sputum, Wheezing Cardiovascular: absent: Chest Pain, Palpitations Gastrointestinal: absent: Abdominal Pain, Stool Changes, Constipation, Diarrhea, Nausea, Vomiting Genitourinary Female: absent: Dysuria, Frequency, Hematuria, Urine Output Changes, Vaginal Bleeding, Vaginal Discharge Musculoskeletal: absent: Arthralgias, Back Pain, Neck Pain Skin: absent: Rash, Pruritis, Skin Lesions Neurological: absent: Headache, Dizziness Endocrine: absent: Diaphoresis, Polyuria Hemo/Lymphatic: absent: Adenopathy Psychiatric: absent: Anxiety, Depression, Suicidal Ideation Physical Exam Vital Signs Temp Pulse Resp BP Pulse Ox 12/12/18 11:02 98.4 F 89 18 118/77 99 Temperature: Afebrile Blood Pressure: Normal Pulse: Regular Respiratory Rate: Normal Appearance: Positive for: Well-Appearing Pain Distress: None Mental Status: Positive for: Alert and Oriented X 3 - Systems Exam Head: Present: Atraumatic, Normocephalic Pupils: Present: PERRL Extroacular Muscles: Present: EOMI Conjunctiva: Present: Normal Mouth: Present: Moist Mucous Membranes Pharnyx: Present: TONSILS ENLARGED, Other (mild posterior orophyrangeal erythema ). No: ERYTHEMA, EXUDATE, Peritonsilar Swelling, Uvular Deviation, Muffled/Hoarse Voice, Strider Neck: Present: Normal Range of Motion, Lymphadenopathy (L anterior cervical chain. No posterior chain involvement. No parotid swelling), Trachea Midline, Other (no ludwigs. ). No: Meningeal Signs, MIDLINE TENDERNESS, Paraspinal Tenderness, JVD Respiratory/Chest: Present: Clear to Auscultation, Good Air Exchange Cardiovascular: Present: Regular Rate and Rhythm, Normal S1, S2 Abdomen: Present: Normal Bowel Sounds. No: Tenderness, Distention Back: Present: Normal Inspection. No: CVA Tenderness, Midline Tenderness Upper Extremity: Present: Normal Inspection, Normal ROM, NORMAL PULSES. No: Cyanosis, Edema Lower Extremity: Present: Normal Inspection, NORMAL PULSES, Neurovascularly Intact. No: Edema, CALF TENDERNESS Neurological: Present: GCS=15, Speech Normal, Gait Normal Skin: Present: Warm, Dry Lymphatic: Present: Cervical Adenopathy (anterior L cervica chain x1) Psychiatric: Present: Alert, Oriented x 3, Normal Insight Medical Decision Making ED Course and Treatment: 23 yr old female w/ hx of tonsillitis, toa, tinea p/w throat swelling. No tongue abnl. No meningeal signs or CUMMINGS. No posterior lymphadenopathy. No fall or trauma. Uvula midline without SENIOR DATA WAREHOUSE ARCHITECT. No hot potatoe voice. No tripoding, pt in NAD, speaking in full sentences. Likely tonsillitis / URI. Will rx with decadron, toradol and likely rx outpt w/ clindamycin. Previous records indicate good improvement w/ clinda in the past. No urinary complaints, back pain or abnl vaginal d/c. 12/12/18 12:22 pt in NAD, tolerating clears well remains w/ out any tripoding, difficulty speaking, worsening difficulty swallo wing, signs of trauma, ludwigs signs or uvular deviation. clear for d/c home with return indications and f/u, pt agreeable to plan. - Medication Orders Current Medication Orders: Dexamethasone (Decadron Inj) 10 mg IM STAT STA Stop: 12/12/18 11:28 Ketorolac Tromethamine (Toradol) 60 mg IM STAT STA Stop: 12/12/18 11:28 Disposition/Present on Arrival - Present on Arrival Any Indicators Present on Arrival: No History of DVT/PE: No History of Uncontrolled Diabetes: No Urinary Catheter: No History of Decub. Ulcer: No History Surgical Site Infection Following: None - Disposition Have Diagnosis and Disposition been Completed?: Yes Diagnosis: Tonsillitis, Pharyngitis Disposition: HOME/ ROUTINE Disposition Time: 11:44 Patient Problems: Current Active Problems Problem Status Onset Pharyngitis Acute Tonsillitis Acute Condition: STABLE Discharge Instructions (ExitCare): Sore Throat, Adult (DC) Additional Instructions: ANDREW MENDIOLA, thank you for letting us take care of you today. Your provider was Jony Crump and you were treated for throat swollen. The emergency medical care you received today was directed at your acute symptoms. If you were prescribed any medication, please fill it and take as directed. It may take several days for your symptoms to resolve. Return to the Emergency Department if your symptoms worsen, do not improve, or if you have any other problems. Please contact your doctor or call one of the physicians/clinics you have been referred to that are listed on the Patient Visit Information form that is included in your discharge packet. Bring any paperwork you were given at discharge with you along with any medications you are taking to your follow up visit. Our treatment cannot replace ongoing medical care by a primary care provider outside of the emergency department. Thank you for allowing the [facility] team to be part of your care today. If you had an X-Ray or CT scan: A Radiologist will review the ED reading if any change in treatment is needed we will contact you. If you had a blood, urine, or wound culture: It will take several days for the results, if any change in treatment is needed we will contact you. If you had an STI test: It will take 48 hours for the results. Please call after 1 week if you have not heard back. Prescriptions: Clindamycin [Cleocin] 300 mg PO Q8H 10 Days #30 cap Referrals: [facility] [Outside] - Follow up with primary [facility] [Outside] - Follow up with primary [facility] [place] [Outside] - Follow up with primary Falguni Beavers MD [Family Provider] - Follow up with primary Gian aHrrison DO [Doctor Osteopathy] - Follow up with primary Forms: [facility] (Ivorian), WORK NOTE
[2018-12-12 12:42] VITALS: BP 121/70; PULSE 79; O2SAT 100
== END 2018-12-12 12:37 | disposition home or self-care (01) ==
LOC: ED 10:47
DX: J03.90 Acute tonsillitis, unspecified (principal)
CPT/HCPCS: 81025; 87070; 96372; 99283; J1100; J1885